=== PATIENT | female | born 1990 | race Caucasian/White ===

== ENCOUNTER 2016-05-26 08:39 | Emergency (ER) | payer BC ==
[2016-05-26] MEDS ORDERED: PROMETHAZINE HCL 25 MG/ML AMPUL IM ONE (10:10)
[2016-05-26] MEDS ORDERED: HYDROmorphone HCL 1 MG/ML DISP.SYRIN IM ONE (10:10)
[2016-05-26] MEDS ORDERED: METHYLPREDNISOLONE SOD SUCC/PF 125 MG/2 ML VIAL IM ONE (10:11)
[2016-05-26] MEDS ORDERED: HYDROmorphone HCL 1 MG/ML DISP.SYRIN ONE (10:30)
--- NOTE | 2016-05-26 10:30 | ERNOTE ---
Back Pain ER HPI Date of Service: 05/26/16 Presenting Symptoms: hx chronic back pain Time Seen by Provider: 05/26/16 10:02 Source: patient, RN notes reviewed, past records Exam Limitations: no limitations Immunizations: IMMUNIZATION HX Immunizations Up to Date Yes History of Influenza Vaccine No Hx Pneumococcal Vaccination No Allergies/Adverse Reactions: Allergies infliximab [From Remicade] Adverse Reaction (Severe, Verified 05/26/16 08:55) Anaphylaxis metoclopramide HCl [From Reglan] Adverse Reaction (Intermediate, Verified 08:55) Muscle Pain morphine Adverse Reaction (Intermediate, Verified 05/26/16 08:55) Hives Home Medications: HOME MEDICATIONS Hydrocodone/Acetaminophen [Vicodin 5-300 mg Tablet] 1 tab PO Q6H PRN #20 tablet 10/12/15 [Last Taken Unknown] Ondansetron [Zofran Odt] 4 mg PO Q6H PRN #20 tab 02/06/16 [Last Taken Unknown] Prednisone [Deltasone] 40 mg PO DAILY 05/26/16 [Last Taken Unknown] tiZANidine HCL [Zanaflex] 4 mg PO Q8H PRN #30 tab 05/26/16 [Last Taken Unknown] Narrative: 25 y/o female to ED for an exacerbation of chronic back pain d/t ankylosis spondylitis that began 2 days ago. She started a prednisone taper as directed by her pyrotechnist and is taking ibuprofen and Vicodin without improvement. She is also experiencing eye symptoms d/t uveitis and a flare up of psoriasis. Date (Duration): 05/24/16 Timing: Reports: constant Quality/Severity: Reports: severe, aching Location of pain: Reports: lower back, radiating to rt thigh/leg, radiating to lf thigh/leg Activities at Onset: Reports: none Recent Injury?: Reports: no Possible Precipitating Factor: Reports: none Associated Symptoms: Reports: difficulty walking. Denies: fever/chills, sweating, constipation/incontinence, nausea/vomiting, problems urinating, lightheadedness, numbess/weakness in legs Prior Treament: Reports: similar symptoms before. Denies: recently seen Review of Systems - Review of Systems Constitutional: Present: See HPI EYE: Present: eye pain, blurred vision. Absent: eye discharge, tearing ENT: Present: no symptoms reported Respiratory: Absent: shortness of breath, cough Cardiology: Present: no symptoms reported Gastrointestinal/Abdominal: Present: See HPI Genitourinary: Absent: other - possible Musculoskeletal: Present: back pain, muscle pain. Absent: neck pain, joint pain Skin: Present: rash, lesions. Absent: lumps Neurological: Absent: headache, dizziness/light-headedness, weakness, numbness Endocrine: Present: no symptoms reported Hematologic/Lymphatic: Present: no symptoms reported Psych: Present: no symptoms reported - Patient's Past Medical History Patient History - Medical: Chronic Pain, Fibromyalgia, Kidney stone, UTI'S, Other Patient History - Cardiac/Respiratory: No pertinent hx Patient History - Cancer: No Hx of Cancer Patient History - Surgical Procedures: Appendectomy, T & A, Other LMP (females 10-50): Mirena - Family History Mother Family History - Medical: Diabetes Type 2 Family History - Cardiac/Respiratory: No pertinent hx - Social History Living Situations: home Smoking Status: Never smoker Alcohol Use: rarely Drug Use: none Physical Exam - Physical Exam General Appearance: Present: wd/wn, alert, obese, other - appears uncomfortable Eye Exam: PERRL: bilateral, EOMI: bilateral, Other: bilateral - mild conjunctival injection bilat Neck: Present: normal inspection, nontender, supple Respiratory: Present: no respiratory distress, normal breath sounds, no accessory muscle use, lungs clear Cardiovascular/Chest: Present: regular rate, rhythm, no murmur, normal peripheral pulses Back Exam: Present: no CVA tenderness, vertebral tenderness - lumbar, decreased range of motion Extremity Exam: Present: normal inspection, non-tender, no edema, normal range of motion Neurological Exam: Present: alert, oriented, normal mood/affect, no motor/ sensory deficits Skin Exam: Present: normal color, warm/dry, skin rash - dry plaques present on elbows ED Progress - Vital Signs Patient's Vital Signs:: I have reviewed the patient's vital signs. Vital Signs: Vital Signs 05/26/16 08:54 Temperature 36.6 C Pulse Rate 95 Respiratory 16 Rate Blood Pressure 144/78 O2 Sat by Pulse 100 Oximetry - Progress/Reassessment Chief Complaint: Back Pain Progress:: Improved Plan - Plan Plan: Dilaudid, Phenergan and SoluMedrol given IM in dept. To contact rheumatology regarding her prednisone dose. Has Vicodin at home. Will Rx muscle relaxant. Departure Clinical Impression: Ankylosing spondylitis of lumbosacral region, Irritation of both eyes, Psoriasis - Departure Disposition: Home Follow Up Needed Condition: Good Instructions: Back Pain, Adult Additional Instructions: Continue ibuprofen and Vicodin Contact rheumatology regarding your prednisone dose Referrals: Melquiades Sims DO [Primary Care Provider] - Prescriptions: tiZANidine HCL [Zanaflex] 4 mg PO Q8H PRN #30 tab PRN Reason: Muscle Spasm
[2016-05-26] MEDS ORDERED: PROMETHAZINE HCL 25 MG/ML AMPUL ONE (10:31)
[2016-05-26] MEDS ORDERED: METHYLPREDNISOLONE SOD SUCC/PF 125 MG/2 ML VIAL ONE (10:31)
[2016-05-26 10:52] VITALS: BP 126/74
== END 2016-05-26 10:45 | disposition home or self-care (01) ==
LOC: ER 08:39
DX: M45.7 Ankylosing spondylitis of lumbosacral region (principal); H57.8 Other specified disorders of eye and adnexa; L40.9 Psoriasis, unspecified

== ENCOUNTER 2016-06-27 19:57 | Observation (INO) | payer BC ==
[2016-06-27] MEDS ORDERED: NORMAL SALINE 1,000 ML IV ONE (20:42)
[2016-06-27] MEDS ORDERED: PROMETHAZINE HCL 25 MG in DEXTROSE 5 % IN WATER 50 ML IV ONE ×2 (20:42)
[2016-06-27] MEDS ORDERED: diphenhydrAMINE HCL 50 MG/ML VIAL IV ONE (20:42)
[2016-06-27] MEDS ORDERED: NALBUPHINE HCL 20 MG/ML AMPUL IV ONE (20:42)
--- NOTE | 2016-06-27 20:52 | ERNOTE ---
<Brittaney Chavarria - Last Filed: 06/27/16 21:49> Headache ER HPI - Narrative Date of Service: 06/27/16 - General Presenting Symptoms: headache Time Seen by Provider: 06/27/16 20:28 Source: patient Exam Limitations: no limitations - Immun/Allergies/Home Medications Immunizations: IMMUNIZATION HX Immunizations Up to Date No History of Influenza Vaccine No Hx Pneumococcal Vaccination No Allergies/Adverse Reactions: Allergies infliximab [From Remicade] Adverse Reaction (Severe, Verified 06/27/16 20:33) Anaphylaxis metoclopramide HCl [From Reglan] Adverse Reaction (Intermediate, Verified 20:33) Muscle Pain morphine Adverse Reaction (Intermediate, Verified 06/27/16 20:33) Hives Home Medications: HOME MEDICATIONS Hydrocodone/Acetaminophen [Vicodin 5-300 mg Tablet] 1 tab PO Q6H PRN #20 tablet 10/12/15 [Last Taken 06/27/16 18:30] Ibuprofen [Motrin] 800 mg PO TID PRN 06/27/16 [Last Taken 06/27/16 17:00] Levonorgestrel [Mirena] 1 each IY DAILY 06/27/16 [Last Taken Unknown] Ustekinumab [Stelara] 45 mg SQ Q30D 06/27/16 [Last Taken 06/26/16] - History of Present Illness Narrative: Pt. comes in with c/o headache and muscle stiffness that started this afternoon.Pt. denies any recent illness or fever but does state that she has had recent dosage of stelara yesterday which was her first dosage of this medication. Pt. denies any CP, SOB, NVD, rhinorrhea, cough, or recent illness. Pt. states that she took vicodin without relief of symptoms. Pt. denies that this is the worst headache of her life but states that it is very severe. Review of Systems - Review of Systems Constitutional: Present: no symptoms reported. Absent: fever, chills, weakness , fatigue, malaise EYE: Present: no symptoms reported ENT: Present: no symptoms reported. Absent: nose pain, nose congestion, nasal drainage, sore throat Respiratory: Present: no symptoms reported. Absent: shortness of breath, cough , wheezing Cardiology: Present: no symptoms reported. Absent: chest pain, palpitations, edema Gastrointestinal/Abdominal: Present: no symptoms reported. Absent: nausea, vomiting, diarrhea Genitourinary: Present: no symptoms reported Musculoskeletal: Present: muscle pain - generalized, muscle stiffness - back and neck Skin: Present: no symptoms reported Neurological: Present: headache. Absent: dizziness/light-headedness, numbness, tingling All Other Systems: All systems neg except as marked - Patient's Past Medical History Patient History - Medical: Chronic Pain, Fibromyalgia, Kidney stone, UTI'S, Other - psoriasis Patient History - Cardiac/Respiratory: No pertinent hx Patient History - Cancer: No Hx of Cancer Patient History - Surgical Procedures: Appendectomy, Cholecystectomy, T & A Patient History - Other: None - Family History Mother Family History - Medical: Diabetes Type 2 Family History - Cardiac/Respiratory: No pertinent hx - Social History Living Situations: home Abuse History: No History of abuse Psych History: No pertinent hx Smoking Status: Never smoker Alcohol Use: rarely Drug Use: none - Immunizations Immunizations Up to Date: No Hx Pneumococcal Vaccination: No History of Influenza Vaccine: No Physical Exam - Physical Exam General Appearance: Present: wd/wn, alert, no apparent distress Eye Exam: Normal inspection: bilateral, PERRL: bilateral, EOMI: bilateral Ears, Nose, Throat: Present: normal ENT inspection, hearing grossly normal, normal pharynx Neck: Present: normal inspection, nontender. Absent: lymphadenopathy (R), lymphadenopathy (L) Respiratory: Present: no respiratory distress, normal breath sounds, no accessory muscle use, chest nontender, lungs clear Cardiovascular/Chest: Present: no murmur, normal peripheral pulses, tachycardia Gastrointestinal/Abdominal: Present: normal bowel sounds, nontender, nondistended, soft, no organomegaly Back Exam: Present: normal inspection, normal range of motion, no CVA tenderness , no vertebral tenderness Extremity Exam: Present: normal inspection, non-tender, no edema, normal range of motion Neurological Exam: Present: alert, oriented, normal mood/affect, no motor/ sensory deficits, commercial insurance underwriter II-XII nml as tested, normal cerebellar test Skin Exam: Present: normal color, warm/dry. Absent: pallor, skin rash ED Progress - Date and Time Seen: Date and Time: 06/27/16 20:49 As severe headache is common with stelara this could be a side effect but if intractable with analgesia then it could by RPLS. 06/27/16 21:49 Gave report on Pt. to Dr Milton. - Vital Signs Patient's Vital Signs:: I have reviewed the patient's vital signs. Vital Signs: Vital Signs 06/27/16 20:24 Temperature 36.6 C Pulse Rate 114 H Respiratory 18 Rate Blood Pressure 135/79 O2 Sat by Pulse 99 Oximetry - EKG EKG: other - sinus tach EKG read: Interp. 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 Headache Qualifiers: Headache type: other vascular headache Qualified Code(s): G44.1 - Vascular headache, not elsewhere classified - Departure Disposition: [facility] Condition: Good <Dedrick Gore - Last Filed: 06/27/16 22:48> Headache ER HPI - General Presenting Symptoms: headache Source: patient Exam Limitations: no limitations - Immun/Allergies/Home Medications Immunizations: IMMUNIZATION HX Immunizations Up to Date No History of Influenza Vaccine No Hx Pneumococcal Vaccination No Physical Exam - Physical Exam General Appearance: Present: wd/wn, alert, no apparent distress Eye Exam: Normal inspection: bilateral, PERRL: bilateral, EOMI: bilateral Ears, Nose, Throat: Present: normal ENT inspection, hearing grossly normal, normal pharynx Neck: Present: normal inspection, nontender Respiratory: Present: no respiratory distress Cardiovascular/Chest: Present: normal peripheral pulses Gastrointestinal/Abdominal: Present: normal bowel sounds, nontender, nondistended, soft, no organomegaly Back Exam: Present: normal inspection, normal range of motion, no CVA tenderness , no vertebral tenderness Extremity Exam: Present: normal inspection, non-tender, no edema, normal range of motion Neurological Exam: Present: alert, oriented, normal mood/affect, no motor/ sensory deficits, commercial insurance underwriter II-XII nml as tested, normal cerebellar test, other - Patient with no gross neurological deficits at this point.. Absent: facial droop, motor weakness, disoriented to person, disoriented to time, disoriented to place, disoriented to situation Skin Exam: Present: normal color, warm/dry. Absent: cool/dry, diaphoresis, cyanosis, jaundice Lymphatic Exam: Present: no adenopathy ED Progress - Date and Time Seen: Date and Time: 06/27/16 22:01 GCS: 15/15 NIH Stroke Scale: 0 Patient at the moment still with headache, but had mild improvement. Patient has no neurological deficits found at the moment. Patient has been given treatment for pain control. At the moment the Hx of been given stelara for the first time yesterday and the development of the worse headache of her life. At this point the diagnosis of Reversible Posterior Leukoencephalopathy Syndrome ( RPLS). Patient with Hx of Rheumatoid Condition which could increase WBC and CRP. Patient will be done CT of the Head at this point. Patient's Neurologist Dr. Dre Huertas (Rheumatology) was called at [phone], but at this time provider has no one covering for him and does not take call on behave of his patient's after hours. This information was given by Service to RN over the phone. At the same time it was informed that provider has no affiliation with hospital for emergency cases. We are to contact primary care provider for further consultation. 06/27/16 22:43 Patient still with BEY. Patient will be place in observation. Patient is considered to be suffering from a side effect to given medication. - Results and Orders Patient's Lab Results:: I have reviewed the patient's lab results. Results and Orders: CBC: Elevated WBC CRP: Elevated CMP: Elevated Na UA: Normal - Vital Signs Patient's Vital Signs:: I have reviewed the patient's vital signs. Vital Signs: Vital Signs 06/27/16 20:24 Temperature 36.6 C Pulse Rate 114 H Respiratory 18 Rate Blood Pressure 135/79 O2 Sat by Pulse 99 Oximetry - CT/Ultrasound CT/Ultrasound Narrative: Patient CT of the Head has been reported by Radiologist as: No acute intracranial hemorrhage o large vascular territory ischemic change - Progress/Reassessment Progress:: Improved - Transfer of Care Expected Disposition: Admit
--- OUTSIDE RECORDS SUMMARY | 2016-06-27 20:53 | XMS REPORT | Continuity of Care Document ---
:1990 Author Organization [facility] ([facility]) Address [address] [place] [address] Phone [phone] Care Team Providers Name Role Phone Melquiades Sims Primary Care Provider [phone] Source Comments This disclosure is being made pursuant to the Care Everywhere program, applicable federal and state laws, and may not contain all informaitonavailable regarding this patient.[facility] ([facility]) Active Allergies and Adverse Reactions Allergen Noted Date Severity Reactions Comments Infliximab 06/04/2011 Anaphylaxis Remicade Metoclopramide Hcl 02/06/2012 Dystonic reaction Morphine 10/27/2008 Rash Current Medications Prescription Sig. Disp. Refills Start Date End Date Status ondansetron 8 mg Take 8 mg by mouth Active disintegrating tablet every 8 hours as needed. Indications: EXCESSIVE VOMITING IN Active Problems Problem Noted Date screening for raised alphafetoprotein level 04/15/2013 Urolithiasis 02/06/2012 Ankylosing spondylitis 01/29/2009 Overview: * Diagnosed 2006 in [place] - atypical acute presentation, non-responsive to prednisone, improved on humira since dx Encounter for long-term (current) use of other medications 01/29/2009 Overview: * humira Recurrent UTI 01/29/2009 Nephrolithiasis 01/29/2009 Overview: * h/o Chronic diarrhea of unknown origin 01/29/2009 Ruptured ovarian cyst 01/29/2009 Overview: * h/o Encounter for long-term (current) use of non-steroidal anti-inflammatories Sleep disturbance 01/29/2009 Chronic pain 01/29/2009 Overview: * features of central sensitization, dx'd 10/10 Social History Tobacco Use Types Packs/Day Years Used Date Never Smoker Smokeless Tobacco: Never Used Alcohol Use Drinks/Week oz/Week Comments No Last Filed Vital Signs Vital Sign Reading Time Taken Blood Pressure 125/70 04/12/2013 1:58 PM ASSOCIATE DIRECTOR OF BIOSTATISTICS Pulse 105 02/22/2013 1:57 PM CDT Temperature 35.8 C (96.4 F) 04/12/2013 1:58 PM ASSOCIATE DIRECTOR OF BIOSTATISTICS Respiratory Rate 16 04/09/2012 9:50 AM ASSOCIATE DIRECTOR OF BIOSTATISTICS Height 1.6 m (5' 2.99") 04/12/2013 1:58 PM ASSOCIATE DIRECTOR OF BIOSTATISTICS Weight 76.6 kg (168 lb 14 oz) 04/12/2013 1:58 PM ASSOCIATE DIRECTOR OF BIOSTATISTICS Body Mass Index 29.92 04/12/2013 1:58 PM ASSOCIATE DIRECTOR OF BIOSTATISTICS Oxygen Saturation 98% 04/09/2012 9:50 AM ASSOCIATE DIRECTOR OF BIOSTATISTICS Plan of Care Health Maintenance Due Date Last Done Comments Hepatitis B Vaccine (1 of 3 - Primary Series) 1990 Tdap Vaccine 11/11/1999 Cervical Cancer Screening 2006 Lipid Disorder Screening 2006 MMR Vaccine 2006 Td Vaccine 2006 Varicella Vaccine (1 of 2 - Adult - No Evidence of 2006 Immunity) Influenza Vaccine: Seasonal (#1) 12/03/2015 Results from Last 3 Months Not on file
--- OUTSIDE RECORDS SUMMARY | 2016-06-27 20:53 | XMS REPORT | Continuity of Care Document ---
:1990 Author Organization [facility] [place] [address] Care Team Providers Name Role Phone Melquiades Sims A Primary Care Provider [phone] Source Comments This disclosure is being made pursuant to the [employer] program and maynot contain all information available regarding this patient.[facility] Active Allergies and Adverse Reactions Allergen Noted Date Severity Reactions Comments Morphine 08/01/2014 High Hives Reglan 08/01/2014 High Myalgia/Myopathy Remicade 08/01/2014 High Anaphylaxis Current Medications Be aware that medications may not be up to date as of this document. Alwaysverify current medications with the patient. Prescription Sig. Disp. Refills Start Date End Date Status ibuprofen Take 800 mg by Active (ADVIL,MOTRIN) 800 MG mouth every 6 tablet (six) hours as needed for Pain. acetaminophen (TYLENOL) Take 1,000 mg by Active 500 MG tablet mouth every 6 (six) hours as needed for Pain. predniSONE (DELTASONE) Days 1-3 take two 11 tablet 0 04/07/2016 Active 20 MG tablet tablets per day, days 4-6 take one tablet per day, days 7-9 take half tablet per day Ustekinumab 45 MG/0.5ML Inject 0.5 mLs 3 Syringe 3 04/11/2016 Active SOSY into the skin every 3 (three) months. Active Problems Problem Noted Date Psoriatic arthritis (HCC) 04/07/2016 Uveitis 04/07/2016 Joint pain 08/01/2014 Psoriasis 08/01/2014 Overview: Overview: Low back pain 05/26/2011 Overview: Overview: DONNA OBRIEN MD Constipation 05/12/2011 Overview: Overview: SONIA VILLALPANDO MD Irritable colon 05/12/2011 Overview: Overview: Acute pain 04/24/2011 Overview: Overview: KAMRON SEGURA DO Nausea with vomiting 04/24/2011 Overview: Overview: KAMRON SEGURA DO Mycoplasma infection 04/21/2011 Overview: Overview: KAMRON SEGURA DO Ovarian cyst 04/21/2011 Overview: Overview: KAMRON SEGURA DO History of urinary tract infection 03/31/2011 Overview: Overview: HARMONY BRUNO MD Overview: CHAPARRO NEWTON MD Dysuria 03/22/2011 Overview: Overview: KAMRON SEGURA DO Abdominal pain 02/05/2011 Overview: Overview: CHAPARRO NEWTON MD Gross hematuria 02/05/2011 Overview: Overview: CHAPARRO NEWTON MD Disorder of immune mechanism ([facility]) 07/09/2010 Overview: Overview: Other specified pre-operative examination 07/09/2010 Overview: Overview: CHAPARRO NEWTON MD Calculus of ureter 07/09/2010 Overview: Overview: CHAPARRO NEWTON MD Personal history of urinary calculi 07/04/2010 Overview: Overview: CHAPARRO NEWTON MD Overview: HARMONY BRUNO MD Myalgia and myositis 06/13/2010 Overview: Overview: DRE DIAZ MD Urinary tract infection 12/10/2009 Overview: Overview: DRE DIAZ MD Encounter for long-term (current) use of other medications 09/24/2009 Overview: Overview: DRE DIAZ MD Ankylosing spondylitis ([facility]) 04/19/2007 Overview: Overview: DRE DIAZ MD Most Recent Encounters Date Type Specialty Providers Description 04/17/2016 Data Import 04/11/2016 Refill Rheumatology Connie Boo LPN Psoriatic arthritis ([facility]) (Primary Dx); Uveitis 04/07/2016 Office Visit Rheumatology Dre Diaz MD Psoriatic arthritis ([facility]) (Primary Dx); Uveitis; Encounter for long-term (current) use of other medications 04/07/2016 Scanned Document Rheumatology Provider, Not In System Social History Tobacco Use Types Packs/Day Years Used Date Never Smoker Smokeless Tobacco: Never Used Tobacco Cessation:Counseling Given: No Comments: Alcohol Use Drinks/Week oz/Week Comments Yes occ Last Filed Vital Signs Vital Sign Reading Time Taken Blood Pressure 123/80 04/07/2016 3:12 PM MOTION PICTURE CAMERA LENS TECHNICIAN Pulse 94 04/07/2016 3:12 PM MOTION PICTURE CAMERA LENS TECHNICIAN Temperature 36.8 C (98.3 F) 06/03/2011 9:19 AM MOTION PICTURE CAMERA LENS TECHNICIAN Respiratory Rate 18 11/01/2014 9:47 AM CDT Height 1.6 m (5' 3") 05/28/2011 2:56 PM [employer]ION PICTURE CAMER[employer] LENS TECHNICIAN Weight 96.163 kg (212 lb) 04/07/2016 3:12 PM MOTION PICTURE CAMERA LENS TECHNICIAN Body Mass Index 37.56 04/07/2016 3:12 PM MOTION PICTURE CAMERA LENS TECHNICIAN Oxygen Saturation - - Plan of Care Date Type Specialty Providers Description 07/07/2016 Appointment Rheumatology Dre Diaz MD [facility] [address] [place] [address] [phone] (Fax) Health Maintenance Due Date Last Done Comments Tetanus/Pertussis (1 - Tdap) 11/11/2007 Pap Smear 2009 Influenza Immunization (#1) 2016 Results from Last 3 Months Not on file
[2016-06-27 21:15] LABS: Hemoglobin 13.8 gm/dL (12.5-16.0); Mean Cell Volume 87.9 fl (78-100); Mean Corpuscular Hemoglobin 28.9 pg (27-31); Mean Corpuscular Hgb Conc 32.9 g/dl (32-36); Mean Platelet Volume 9.4 fl (6.0-9.5); Neutrophil % 66.6 % (42-75.0); Platelet Count 314 K/mm3 (150-450); Red Blood Count 4.78 M/mm3 (4.2-5.4); Red Cell Distribution Width 12.8 % (11.5-14.0); White Blood Count 13.5 K/mm3 (4.0-10.5)
[2016-06-27 21:26] LABS: Albumin * 4.1 gm/dl (3.4-5.0); BUN/Creatinine Ratio 14.7 (9.0-21.6); Bilirubin, Total 0.2 mg/dL (0.0-1.1); CRP 2.3 mg/dL (0.0-0.9); Ca. Corrected For Albumin 8.6 mg/dL (8.4-10.2); Total Protein 8.5 gm/dL (6.2-8.2)
[2016-06-27] MEDS ORDERED: NALBUPHINE HCL 20 MG/ML AMPUL ONE (21:31)
[2016-06-27] MEDS ORDERED: diphenhydrAMINE HCL 50 MG/ML VIAL ONE (21:31)
[2016-06-27 21:41] LABS: Urine Appearance Clear; Urine Bilirubin Negative (NEGATIVE); Urine Blood 25 /ul (NEGATIVE); Urine Color Yellow; Urine Ketone Negative (NEGATIVE); Urine Nitrite Negative (NEGATIVE); Urine Protein Negative (NEGATIVE); Urine Specific Gravity 1.025 SP.GR. (1.005-1.010); Urine Urobilinogen Normal (NORMAL)
[2016-06-27 21:42] LABS: Urine Bacteria None Seen; Urine WBC 0-5 /hpf (0-5)
--- OUTSIDE RECORDS SUMMARY | 2016-06-27 22:53 | XMS REPORT | Continuity of Care Document ---
:1990 Author Organization [facility] [place] [address] Care Team Providers Name Role Phone Melquiades Sims A Primary Care Provider [phone] Source Comments This disclosure is being made pursuant to the [employer] program and maynot contain all information available regarding this patient.[facility] Active Allergies and Adverse Reactions Allergen Noted [...] CHAPARRO NEWTON MD Disorder of immune mechanism ([facility]) 07/09/2010 Overview: Overview: Other specified pre-operative examination [...] Overview: Overview: DRE DIAZ MD Ankylosing spondylitis ([facility]) 04/19/2007 Overview: Overview: DRE DIAZ MD Most Recent Encounters Date Type Specialty Providers Description 04/17/2016 Data Import 04/11/2016 Refill Rheumatology Connie Boo LPN Psoriatic arthritis ([facility]) (Primary Dx); Uveitis 04/07/2016 Office Visit Rheumatology Dre Diaz MD Psoriatic arthritis ([facility]) (Primary Dx); Uveitis; Encounter for long-term (current) use of other medications 04/07/2016 Scanned Document Rheumatology Provider, Not In System Social History Tobacco Use Types Packs/Day Years Used Date Never Smoker Smokeless Tobacco: Never Used Tobacco Cessation:Counseling Given: No Comments: Alcohol Use Drinks/Week oz/Week Comments Yes occ Last Filed Vital Signs Vital Sign Reading Time Taken Blood Pressure 123/80 04/07/2016 3:12 PM TUBE ROLLER Pulse 94 04/07/2016 3:12 PM TUBE ROLLER Temperature 36.8 C (98.3 F) 06/03/2011 9:19 AM TUBE ROLLER Respiratory Rate 18 11/01/2014 9:47 AM CDT Height 1.6 m (5' 3") 05/28/2011 2:56 PM TUBE ROLLER Weight 96.163 kg (212 lb) 04/07/2016 3:12 PM TUBE ROLLER Body Mass Index 37.56 04/07/2016 3:12 PM TUBE ROLLER Oxygen Saturation - - Plan of Care Date Type Specialty Providers Description 07/07/2016 Appointment Rheumatology Dre Diaz MD [facility] [address] [place] [address] [phone] (Fax) Health Maintenance Due Date Last Done Comments Tetanus/Pertussis (1 - Tdap) 11/11/2007 Pap Smear 2009 Influenza Immunization (#1) 2016 Results from Last 3 Months Not on file
--- OUTSIDE RECORDS SUMMARY | 2016-06-27 22:53 | XMS REPORT | Continuity of Care Document ---
:1990 Author Organization [facility] ([facility]) Address [address] [place] [address] Phone [phone] Care Team Providers Name Role Phone Melquiades Sims Primary Care Provider [phone] Source Comments This disclosure is being made pursuant to the Care Everywhere program, applicable federal and state laws, and may not contain all informaitonavailable regarding this patient.[facility] ([facility]) Active Allergies and Adverse Reactions Allergen [...] spondylitis 01/29/2009 Overview: * Diagnosed 2006 in [place] - atypical acute presentation, non-responsive to prednisone, [...] Taken Blood Pressure 125/70 04/12/2013 1:58 PM PURCHASING AND FISCAL CLERK Pulse 105 02/22/2013 1:57 PM CDT Temperature 35.8 C (96.4 F) 04/12/2013 1:58 PM PURCHASING AND FISCAL CLERK Respiratory Rate 16 04/09/2012 9:50 AM PURCHASING AND FISCAL CLERK Height 1.6 m (5' 2.99") 04/12/2013 1:58 PM PURCHASING AND FISCAL CLERK Weight 76.6 kg (168 lb 14 oz) 04/12/2013 1:58 PM PURCHASING AND FISCAL CLERK Body Mass Index 29.92 04/12/2013 1:58 PM PURCHASING AND FISCAL CLERK Oxygen Saturation 98% 04/09/2012 9:50 AM PURCHASING AND FISCAL CLERK Plan of Care Health Maintenance Due Date [...]
[2016-06-27] MEDS ORDERED: ONDANSETRON HCL/PF 2 MG/ML VIAL IV PRN (23:35)
[2016-06-27] MEDS ORDERED: HYDROCODONE PO PRN (23:36)
[2016-06-27] MEDS ORDERED: IBUPROFEN 800 MG TABLET PO PRN (23:36)
[2016-06-27] MEDS ORDERED: ACETAMINOPHEN PO PRN (23:36)
[2016-06-27] MEDS ORDERED: KETOROLAC TROMETHAMINE 30 MG/ML VIAL IV PRN (23:53)
[2016-06-27] MEDS: NORMAL SALINE 1,000 ML IV ONE (23:54)
--- NOTE | 2016-06-28 00:10 | HP ---
<Koki Donnelly - Last Filed: 06/28/16 07:15> Chief Complaint - Chief Complaint Date of Service: 06/28/16 Time of Service: 00:04 Chief Complaint: "Severe Headaches". Source of HPI- Pt; reliable, ER provider report. History of Present Illness: Ms. Caruso is a 25 -yr-old [place] pt of Dr. Melquiades Sims with a PMH: Anemia, Ankylosing Spondylitis, Kidney Calculus, Fibromyalgia, IBS, Psoriatic Athritis and Past Suicide attempts. Pt states that she has been seeing a Rheumatology doctor for Psoriasis. She was started on Stelara recently and she took the first SQ injection at 6 am today. Then at around noon, she states that she developed a headache. She took Ibuprofen for it and fours hour later, it was still persistent and severe. She states that she took 1 tablet of Hydrocodone-5 /325 and the headache never got better. She chose to come to the [facility] ER at about 630pm. She denies history of migraines and states that she rarely has headaches. Today's headache was the worst she has ever had. The location of the headache was the back side of the head and throbbing in nature. She denies the associated symptoms of: double vision, nausea & vomiting. She denies fevers & chills. Also, no photophobia was noted. During evaluation at the ED, she had a CT of the head and there were no acute findings. The headache failed to improve despite administration with IV analgesics. She will be admitted under observation status due to intractable headache. - Patient's Past Medical History Patient History - Medical: Anemia, Chronic Pain, Fibromyalgia, Kidney stone, UTI 'S, Other - Irritable Bowel Syndrome, Post Depression, Ankylosing Spondylitis, Patient History - Cardiac/Respiratory: No pertinent hx, Asthma Patient History - Cancer: No Hx of Cancer Patient History - Surgical Procedures: Appendectomy, Cholecystectomy, T & A Patient History - Other: None LMP (females 10-50): two years - Family History Mother Family History - Medical: Diabetes Type 2 Family History - Cardiac/Respiratory: No pertinent hx Father Family History - Cardiac/Respiratory: COPD - Social History Living Situations: spouse Abuse History: No History of abuse Psych History: No pertinent hx Smoking Status: Never smoker Have you smoked in the past 12 months: No Alcohol Use: rarely Drug Use: none - Immunizations Immunizations Up to Date: No Hx Pneumococcal Vaccination: No History of Influenza Vaccine: No Review Of Systems (GEN) - Review of Systems Generalized/Overall Review: Absent: Weakness, Chills, Fatigue EENTM: Present: Tearing. Absent: Eye Pain, Blurred Vision, Double Vision, Nose Congestion, Throat Pain Respiratory: Absent: Cough, Shortness of Breath, Wheezing Cardiac: Absent: Chest Pain Abdominal: Absent: Nausea, Vomiting, Hematemesis, Abdominal Pain Genitourinary: Absent: Burning, Itching, Frequency Musculoskeletal: Absent: Joint Pain, Back Pain Neurological: Absent: Headache, Anxiety Skin: Absent: Dryness, Lesions Endocrine: Absent: Intolerance to Cold, Excessive Sweating, Increased Hunger Allergies/Adverse Reactions: Allergies Allergy/AdvReac Type Severity Reaction Status Date / Time infliximab [From Remicade] AdvReac Severe Anaphylaxis Verified 06/27/16 23:37 metoclopramide HCl AdvReac Intermediate Muscle Pain Verified 06/27/16 23:37 [From Reglan] morphine AdvReac Intermediate Hives Verified 06/27/16 23:37 Home Medications: HOME MEDICATIONS Hydrocodone/Acetaminophen [Vicodin 5-300 mg Tablet] 1 tab PO Q6H PRN #20 tablet 10/12/15 [Last Taken 06/27/16 18:30] Ibuprofen [Motrin] 800 mg PO TID PRN 06/27/16 [Last Taken 06/27/16 17:00] Levonorgestrel [Mirena] 1 each IY DAILY 06/27/16 [Last Taken Unknown] Ustekinumab [Stelara] 45 mg SQ Q30D 06/27/16 [Last Taken 06/26/16] Exam - Exam Vital Signs: Vital Signs - Last Taken Temp 36.9 C 06/27/16 23:04 Pulse 110 H 06/27/16 23:04 Resp 18 06/27/16 23:04 BP 135/85 06/27/16 23:04 Pulse Ox 97 06/27/16 23:04 Constitutional: Present: Alert, Oriented x3, Cooperative, No distress ENT Exam: Absent: nasal congestion, nasal drainage Eye Exam: bilateral eye: other - Redness on both eyes. Neck: Present: full range of motion, supple, normal inspection Back Exam: Present: no CVA tenderness Respiratory: Present: lungs clear, no accessory muscle use, No wheezing Cardiovascular/Chest: Present: normal peripheral pulses, regular rate, rhythm, no edema, no murmur Abdomen: Present: Normal bowel sounds, soft, nontender /Rectal: Present: Exam deferred Extremity: Present: normal range of motion, non-tender, normal inspection Skin Exam: Present: warm/dry, no cyanosis Lymphatic: Present: no adenopathy Neurologic: Present: no motor/sensory deficits, alert, oriented x 3, dizzy/light -headedness Appearance: Present: appropriate appearance, appropriate insight, neat Eye contact: Present: cooperative, good eye contact, normal speech Thoughts: Present: normal thought pattern, no apparent hallucination Diagnostic Studies: Laboratory Results WBC 13.5 K/mm3 (4.0-10.5) H 06/27/16 21:05 RBC 4.78 M/mm3 (4.2-5.4) 06/27/16 21:05 Hgb 13.8 gm/dL (12.5-16.0) 06/27/16 21:05 Hct 42.0 % (37.0-47.0) 06/27/16 21:05 MCV 87.9 fl (78-100) 06/27/16 21:05 MCH 28.9 pg (27-31) 06/27/16 21:05 MCHC 32.9 g/dl (32-36) 06/27/16 21:05 RDW 12.8 % (11.5-14.0) 06/27/16 21:05 Plt Count 314 K/mm3 (150-450) 06/27/16 21:05 MPV 9.4 fl (6.0-9.5) 06/27/16 21:05 Immature Gran % (Auto) 0.20 % (0.001-0.429) 06/27/16 21:05 Immature Gran # (Auto) 0.03 K/mm3 (0.000-0.0310) 06/27/16 21:05 Neutrophils % 66.6 % (42-75.0) 06/27/16 21:05 Lymphocytes % 28.0 % (20-51) 06/27/16 21:05 Monocytes % 4.0 % (0.0-9) 06/27/16 21:05 Eosinophils % 0.8 % (0.0-3.0) 06/27/16 21:05 Basophils % 0.4 % (0.0-1.0) 06/27/16 21:05 Nucleated RBC % 0.0 k/mm3 (0-1) 06/27/16 21:05 Neutrophils # 9.0 K/mm3 (1.3-6.0) H 06/27/16 21:05 Lymphocytes # 3.8 k/mm3 (1.5-3.5) H 06/27/16 21:05 Monocytes # 0.5 k/mm3 (0.0-1.0) 06/27/16 21:05 Eosinophils # 0.1 k/mm3 (0.0-0.7) 06/27/16 21:05 Absolute Basophils 0.1 k/mm3 (0.0-0.1) 06/27/16 21:05 ESR 38 mm/hr (0-15) H 06/27/16 21:05 Sodium 139 mmol/L (132-142) 06/27/16 21:05 Plasma Sodium 140 mmol/L (130-142) 06/27/16 21:05 Potassium 4.0 mmol/L (3.4-4.6) 06/27/16 21:05 Chloride 103 mmol/L (97-106) 06/27/16 21:05 Carbon Dioxide 26.0 mmol/L (24-32.6) 06/27/16 21:05 Anion Gap 14.0 mmol/L (6.8-13.8) H 06/27/16 21:05 BUN 11 mg/dL (3-23) 06/27/16 21:05 Creatinine 0.75 mg/dL (0.4-1.4) 06/27/16 21:05 Est GFR (Non-Af Amer) 99 mL/min (60-130) D 06/27/16 21:05 BUN/Creatinine Ratio 14.7 (9.0-21.6) 06/27/16 21:05 Random Glucose 132 mg/dL (70-110) H 06/27/16 21:05 Calcium 9.0 mg/dL (7.9-10.9) 06/27/16 21:05 Calcium Adj for Albumin 8.6 mg/dL (8.4-10.2) 06/27/16 21:05 Total Bilirubin 0.2 mg/dL (0.0-1.1) 06/27/16 21:05 AST 19 U/L (0-48) 06/27/16 21:05 ALT 32 U/L (19-67) 06/27/16 21:05 Alkaline Phosphatase 57 U/L (50-170) 06/27/16 21:05 C-Reactive Prot, Quant 2.3 mg/dL (0.0-0.9) H 06/27/16 21: Total Protein 8.5 gm/dL (6.2-8.2) H 06/27/16 21: Albumin 4.1 gm/dl (3.4-5.0) 06/27/16 21: Urine Color Yellow 06/27/16 21: Urine Appearance Clear 06/27/16 21: Urine pH 6.0 pH (5.0-7.0) 06/27/16 21: Ur Specific [place] 1.025 SP.GR. (1.005-1.010) 06/27/16 21: Urine Protein Negative mg/dL (NEGATIVE) 06/27/16 21: Urine Glucose (UA) Negative mg/dL (NEGATIVE) 06/27/16 21: Urine Ketones Negative mg/dL (NEGATIVE) 06/27/16 21: Urine Blood 25 /ul (NEGATIVE) H 06/27/16 21: Urine Nitrate Negative (NEGATIVE) 06/27/16 21:27 Urine Bilirubin Negative mg/dl (NEGATIVE) 06/27/16 21: Urine Urobilinogen Normal EU/dl (NORMAL) 06/27/16 21: Ur Leukocyte Esterase Negative /ul (NEGATIVE) 06/27/16 21:27 Urine RBC 5-10 /hpf (0-5) H 06/27/16 21:27 Urine WBC 0-5 /hpf (0-5) 06/27/16 21:27 Ur Epithelial Cells 0-5 /hpf (0-5) 06/27/16 21: Urine Bacteria None seen (NONE) 06/27/16 21:27 Urine Culture Comments No culture indicated 06/27/16 21: Influenza Type A Ag Negative (NEGATIVE) 06/27/16 21:47 Influenza Type B Ag Negative (NEGATIVE) 06/27/16 21:47 Assessment/Plan - Assessment/Plan (1) Intractable headache due to drug Assessment: Ms. Caruso is a 25-yr-old female pt with a known history of Psoriasis and by her report, she was recently started on a new drug (Stelara) by her Vehicle Modification Technician. Attempts to reach this provider by the ERP was unsuccessful, hence no records to validate medical information. She tried Ibuprofen and hydrocodone at home and that regimen did not help and therefore chose to come to the ED. She denied the associated symptoms of nausea, vomiting, double vision ,dizziness, vertigo. She also denied prior history of primary headaches. At the time of examination, she does appear to be in mild distress but does not appear acutely ill. V.S remained stable. Her mental status is normal and does not appear intoxicated. I do not believe that MRI is necessary as there was no Altered level of consciousness of Neurological deficits, unless the CT shows inconclusive findings. The headache is likely the side effect of the Stelara and is a SQ injection that is administered every 4 weeks then q 12 weeks. It has a reported half-life elimination of 10-126 days & so am uncertain how long her headaches could last if indeed her headaches are from this medication. For any acute treatment of a headache episode, simple analgesics and NSAIDs are strongly recommended as first line use. Ibuprofen 200-800mg has a favorable side effect. Could also consider Diclofenac. Will attempt to treat with scheduled APAP and avoid narcotics as they can worsen headaches. Will also hydrate with IVF as dehydration can worsen headaches also. Will offer prn Toradol IV. Problem: Suspected <Philipp Hale - Last Filed: 06/28/16 14:49> Immunizations: IMMUNIZATION HX Immunizations Up to Date No History of Influenza Vaccine No Hx Pneumococcal Vaccination No Exam - Exam Vital Signs: Vital Signs - Last Taken Temp 36.9 C 06/28/16 10:45 Pulse 98 06/28/16 10:45 Resp 18 06/28/16 10:45 BP 123/57 06/28/16 10:45 Pulse Ox 98 06/28/16 10:45 Diagnostic Studies: Laboratory Results WBC 13.5 K/mm3 (4.0-10.5) H 06/27/16 21:05 RBC 4.78 M/mm3 (4.2-5.4) 06/27/16 21:05 Hgb 13.8 gm/dL (12.5-16.0) 06/27/16 21:05 Hct 42.0 % (37.0-47.0) 06/27/16 21:05 MCV 87.9 fl (78-100) 06/27/16 21:05 MCH 28.9 pg (27-31) 06/27/16 21:05 MCHC 32.9 g/dl (32-36) 06/27/16 21:05 RDW 12.8 % (11.5-14.0) 06/27/16 21:05 Plt Count 314 K/mm3 (150-450) 06/27/16 21:05 MPV 9.4 fl (6.0-9.5) 06/27/16 21:05 Immature Gran % (Auto) 0.20 % (0.001-0.429) 06/27/16: Immature Gran # (Auto) 0.03 K/mm3 (0.000-0.0310) 06/27/16 21:05 Neutrophils % 66.6 % (42-75.0) 06/27/16 21:05 Lymphocytes % 28.0 % (20-51) 06/27/16 21:05 Monocytes % 4.0 % (0.0-9) 06/27/16 21:05 Eosinophils % 0.8 % (0.0-3.0) 06/27/16 21:05 Basophils % 0.4 % (0.0-1.0) 06/27/16 21: Nucleated RBC % 0.0 k/mm3 (0-1) 06/27/16 21:05 Neutrophils # 9.0 K/mm3 (1.3-6.0) H 06/27/16 21:05 Lymphocytes # 3.8 k/mm3 (1.5-3.5) H 06/27/16 21:05 Monocytes # 0.5 k/mm3 (0.0-1.0) 06/27/16 21:05 Eosinophils # 0.1 k/mm3 (0.0-0.7) 06/27/16 21:05 Absolute Basophils 0.1 k/mm3 (0.0-0.1) 06/27/16 21:05 ESR 38 mm/hr (0-15) H 06/27/16 21:05 Sodium 139 mmol/L (132-142) 06/27/16 21:05 Plasma Sodium 140 mmol/L (130-142) 06/27/16 21:05 Potassium 4.0 mmol/L (3.4-4.6) 06/27/16 21:05 Chloride 103 mmol/L (97-106) 06/27/16 21:05 Carbon Dioxide 26.0 mmol/L (24-32.6) 06/27/16 21:05 Anion Gap 14.0 mmol/L (6.8-13.8) H 06/27/16 21:05 BUN 11 mg/dL (3-23) 06/27/16 21:05 Creatinine 0.75 mg/dL (0.4-1.4) 06/27/16 21:05 Est GFR (Non-Af Amer) 99 mL/min (60-130) D 06/27/16 21:05 BUN/Creatinine Ratio 14.7 (9.0-21.6) 06/27/16 21:05 Random Glucose 132 mg/dL (70-110) H 06/27/16 21:05 Calcium 9.0 mg/dL (7.9-10.9) 06/27/16 21:05 Calcium Adj for Albumin 8.6 mg/dL (8.4-10.2) 06/27/16 21:05 Total Bilirubin 0.2 mg/dL (0.0-1.1) 06/27/16 21:05 AST 19 U/L (0-48) 06/27/16 21:05 ALT 32 U/L (19-67) 06/27/16 21:05 Alkaline Phosphatase 57 U/L (50-170) 06/27/16 21:05 C-Reactive Prot, Quant 2.3 mg/dL (0.0-0.9) H 06/27/16 21:05 Total Protein 8.5 gm/dL (6.2-8.2) H 06/27/16 21:05 Albumin 4.1 gm/dl (3.4-5.0) 06/27/16 21:05 Urine Color Yellow 06/27/16 21:27 Urine Appearance Clear 06/27/16:27 Urine pH 6.0 pH (5.0-7.0) 06/27/16 21:27 Ur Specific [place] 1.025 SP.GR. (1.005-1.010) 06/27/16 21:27 Urine Protein Negative mg/dL (NEGATIVE) 06/27/16 21:27 Urine Glucose (UA) Negative mg/dL (NEGATIVE) 06/27/16 21:27 Urine Ketones Negative mg/dL (NEGATIVE) 06/27/16 21:27 Urine Blood 25 /ul (NEGATIVE) H 06/27/16 21:27 Urine Nitrate Negative (NEGATIVE) 06/27/16 21:27 Urine Bilirubin Negative mg/dl (NEGATIVE) 06/27/16 21: Urine Urobilinogen Normal EU/dl (NORMAL) 06/27/16 21:27 Ur Leukocyte Esterase Negative /ul (NEGATIVE) 06/27/16 21:27 Urine RBC 5-10 /hpf (0-5) H 06/27/16 21:27 Urine WBC 0-5 /hpf (0-5) 06/27/16 21:27 Ur Epithelial Cells 0-5 /hpf (0-5) 06/27/16 21:27 Urine Bacteria None seen (NONE) 06/27/16 21:27 Urine Culture Comments No culture indicated 06/27/16 21:27 Influenza Type A Ag Negative (NEGATIVE) 06/27/16 21:47 Influenza Type B Ag Negative (NEGATIVE) 06/27/16 21:47 Assessment/Plan - Narrative Narrative: This patient has a history of occasional minor headaches dating back to when she was 11 y/o. Her father also has headaches. She also has a history of chronic pain. I personally directed all of [facility]'s care for this patient.
[2016-06-28] MEDS: ACETAMINOPHEN 500 MG TABLET PO PRN ×2 (01:01→12:55)
[2016-06-28] MEDS ORDERED: NALBUPHINE HCL 20 MG/ML AMPUL IV ONE (03:32)
[2016-06-28] MEDS: NORMAL SALINE 1,000 ML IV ONE (06:33)
[2016-06-28] MEDS ORDERED: MAGNESIUM SULFATE 4 MEQ/ML VIAL IV ONE (08:38)
[2016-06-28] MEDS: KETOROLAC TROMETHAMINE 30 MG/ML VIAL IV SCH ×2 (09:35→14:26)
[2016-06-28] MEDS: diphenhydrAMINE HCL 50 MG/ML VIAL IV SCH ×2 (09:35→14:30)
[2016-06-28] MEDS: PROMETHAZINE HCL 25 MG in DEXTROSE 5 % IN WATER 50 ML IV SCH ×4 (09:36→14:32)
[2016-06-28] MEDS ORDERED: MAGNESIUM SULFATE IV SCH (10:00)
[2016-06-28] MEDS ORDERED: NORMAL SALINE IV SCH (10:00)
[2016-06-28] MEDS ORDERED: diphenhydrAMINE HCL 50 MG/ML VIAL IV STA (14:12)
[2016-06-28] MEDS ORDERED: PROMETHAZINE HCL 25 MG in DEXTROSE 5 % IN WATER 50 ML IV STA ×2 (14:12)
--- NOTE | 2016-06-28 14:57 | DS ---
Description of Stay: CT of the brain at time of admission was non acute. Headache is somewhat better at the present time. She has had intermittent headaches in the past, and her father has headaches, but this one seems to have been triggered by Stelara. We have advised no future use of this medicine, and recommended a trial of daily Depakote ER to decrease headaches. Procedures Performed: none Discharge Disposition: Home self care Disposition: Home self-care Condition: Good Discharge Activity: Activity as tolerated Discharge Diet: General/regular food Problem Oriented Discharge Instructions to Patient/Family: Drug Allergy, Easy- to-Read Additional Patient Instructions (free text): Avoid Stelara in the future. Follow up with your doctor next week. Prescriptions (Any new or edited meds): Divalproex Sodium [Depakote ER] 500 mg PO HS #7 tab Complete Home Medications List: Complete Home Medication List: Hydrocodone/Acetaminophen [Vicodin 5-300 mg Tablet] 1 tab PO Q6H PRN #20 tablet 10/12/15 Ibuprofen [Motrin] 800 mg PO TID PRN 06/27/16 Levonorgestrel [Mirena] 1 each IY DAILY 06/27/16 Divalproex Sodium [Depakote ER] 500 mg PO HS #7 tab 06/28/16
[2016-06-28 15:50] VITALS: BP 108/62
[2016-06-28] MEDS ORDERED: HYDROcodone/ACETAMINOPHEN 1 EACH TABLET PO ONE (16:30)
[2016-07-28] MEDS ORDERED: LEVONORGESTREL IY ONE (09:00)
== END 2016-06-28 16:55 | disposition home or self-care (01) ==
LOC: ER 19:57 → MS 22:44
PROVIDERS: ADMIT Allergy & Immunology; ATTEND Allergy & Immunology
DX: G44.41 Drug-induced headache, not elsewhere classified, intractable (principal); L40.9 Psoriasis, unspecified; M79.7 Fibromyalgia; T50.995A Adverse effect of other drugs, medicaments and biological substances, initial encounter
CPT/HCPCS: 36415; 70450; 80053; 81001; 85025; 85652; 86140; 87400; 93005; 96365; 96366; 96367; 96375; 96376; 99284; G0378

== ENCOUNTER 2016-07-10 19:56 | Emergency (ER) | payer BC ==
[2016-07-10 20:06] VITALS: BP 154/83
--- OUTSIDE RECORDS SUMMARY | 2016-07-10 20:39 | XMS REPORT | Continuity of Care Document ---
:1990 Author Organization [facility] [place] [address] Care Team Providers Name Role Phone Melquiades Sims A Primary Care Provider [phone] Source Comments This disclosure is being made pursuant to the [employer] program and maynot contain all information available regarding this patient.[facility] Active Allergies and Adverse Reactions Allergen Noted [...] CHAPARRO NEWTON MD Disorder of immune mechanism (HCC) 07/09/2010 Overview: Overview: Other specified pre-operative examination 07/09/2010 Overview: Overview: CHAPARRO NEWTON MD Calculus of ureter 07/09/2010 Overview: Overview: CHAPARRO NEWTON MD Personal history of urinary calculi 07/04/2010 Overview: Overview: CHAPARRO NEWTON MD Overview: HARMONY BRUNO MD Myalgia and myositis 06/13/2010 Overview: Overview: NIMO DIAZ MD Urinary tract infection 12/10/2009 Overview: Overview: NIMO DIAZ MD Encounter for long-term (current) use of other medications 09/24/2009 Overview: Overview: NIMO DIAZ MD Ankylosing spondylitis ([facility]) 04/19/2007 Overview: Overview: NIMO DIAZ MD Most Recent Encounters Date Type Specialty Providers Description 04/17/2016 Data Import 04/11/2016 Refill Rheumatology Connie Boo LPN Psoriatic arthritis ( [facility]) (Primary Dx); Uveitis Social History Tobacco Use Types Packs/Day Years Used Date Never Smoker Smokeless Tobacco: Never Used Tobacco Cessation:Counseling Given: No Comments: Alcohol Use Drinks/Week oz/Week Comments Yes occ Last Filed Vital Signs Vital Sign Reading Time Taken Blood Pressure 123/80 04/07/2016 3:12 PM FIELD COLLECTOR Pulse 94 04/07/2016 3:12 PM FIELD COLLECTOR Temperature 36.8 C (98.3 F) 06/03/2011 9:19 AM FIELD COLLECTOR Respiratory Rate 18 11/01/2014 9:47 AM CDT Height 1.6 m (5' 3") 05/28/2011 2:56 PM FIELD COLLECTOR Weight 96.163 kg (212 lb) 04/07/2016 3:12 PM FIELD COLLECTOR Body Mass Index 37.56 04/07/2016 3:12 PM FIELD COLLECTOR Oxygen Saturation - - Plan of Care Health Maintenance Due Date Last Done Comments Tetanus/Pertussis (1 - Tdap) 11/11/2007 Pap Smear 2009 Influenza Immunization (#1) 2016 Results from Last 3 Months Not on file
--- OUTSIDE RECORDS SUMMARY | 2016-07-10 20:40 | XMS REPORT | Continuity of Care Document ---
:1990 Author Organization [facility] ([facility]) Address [address] [place] [address] Phone [phone] Care Team Providers Name Role Phone Melquiades Sims Primary Care Provider [phone] Source Comments This disclosure is being made pursuant to the Care Everywhere program, applicable federal and state laws, and may not contain all informaitonavailable regarding this patient.[facility] ([facility]) Active Allergies and Adverse Reactions Allergen [...] spondylitis 01/29/2009 Overview: * Diagnosed 2006 in [place] - atypical acute presentation, non-responsive to prednisone, [...] Taken Blood Pressure 125/70 04/12/2013 1:58 PM CARPENTER PROTOTYPE Pulse 105 02/22/2013 1:57 PM CDT Temperature 35.8 C (96.4 F) 04/12/2013 1:58 PM [employer]ENTER [employer] Respiratory Rate 16 04/09/2012 9:50 AM [employer]PENTER [employer] Height 1.6 m (5' 2.99") 04/12/2013 1:58 PM [employer] Weight 76.6 kg (168 lb 14 oz) 04/12/2013 1:58 PM [employer] Body Mass Index 29.92 04/12/2013 1:58 PM [employer] Oxygen Saturation 98% 04/09/2012 9:50 AM [employer] Plan of Care Health Maintenance Due Date [...]
[2016-07-10] MEDS ORDERED: TETRACAINE HCL 150 DROP BTL ONE (20:42)
--- NOTE | 2016-07-10 20:48 | ERNOTE ---
ENT HPI Date of Service: 07/10/16 Time Seen by Provider: 07/10/16 20:06 - Immun/Allergies/Home Medications Immunizations: IMMUNIZATION HX Immunizations Up to Date Yes History of Influenza Vaccine No Hx Pneumococcal Vaccination No Allergies/Adverse Reactions: Allergies Allergy/AdvReac Type Severity Reaction Status Date / Time infliximab [From Remicade] AdvReac Severe Anaphylaxis Verified 06/27/16 23:37 metoclopramide HCl AdvReac Intermediate Muscle Pain Verified 06/27/16 23:37 [From Reglan] morphine AdvReac Intermediate Hives Verified 06/27/16 23:37 ustekinumab [From Stelara] AdvReac Intermediate Headache Verified 06/28/16 14:52 Home Medications: HOME MEDICATIONS Hydrocodone/Acetaminophen [Vicodin 5-300 mg Tablet] 1 tab PO Q6H PRN #20 tablet 10/12/15 [Last Taken 06/27/16 18:30] Ibuprofen [Motrin] 800 mg PO TID PRN 06/27/16 [Last Taken 06/27/16 17:00] Levonorgestrel [Mirena] 1 each IY DAILY 06/27/16 [Last Taken Unknown] Divalproex Sodium [Depakote ER] 500 mg PO HS #7 tab 06/28/16 [Last Taken Unknown ] - History of Present Illness Narrative: pt felt as if she had a "hair" in her left eye. she removed it and rubbed her left eye, now it is inflamed and feels itchy Severity: Present: mild ENT Location: Present: eye (L) Review of Systems - Review of Systems Constitutional: Present: See HPI EYE: Present: see HPI Respiratory: Present: no symptoms reported Cardiology: Present: no symptoms reported Gastrointestinal/Abdominal: Present: no symptoms reported - Patient's Past Medical History Patient History - Medical: Anemia, Chronic Pain, Fibromyalgia, Kidney stone, UTI 'S, Other Patient History - Cardiac/Respiratory: No pertinent hx, Asthma Patient History - Cancer: No Hx of Cancer Patient History - Surgical Procedures: Appendectomy, Cholecystectomy, T & A Patient History - Other: None - Family History Mother Family History - Medical: Diabetes Type 2 Family History - Cardiac/Respiratory: No pertinent hx Father Family History - Cardiac/Respiratory: COPD - Social History Living Situations: spouse Abuse History: No History of abuse Psych History: No pertinent hx Smoking Status: Never smoker Have you smoked in the past 12 months: No Do you dip or chew tobacco: No Alcohol Use: rarely Drug Use: none - Immunizations Immunizations Up to Date: Yes Hx Pneumococcal Vaccination: No History of Influenza Vaccine: No Physical Exam - Physical Exam General Appearance: Present: wd/wn, alert, no apparent distress Eye Exam: Normal inspection: left - left phymosis noted, pt has edema of left conjunctiva. PERRLA, EOMI, no visible uveitis. fundus looks normal. , PERRL: bilateral, EOMI: bilateral Ears, Nose, Throat: Present: normal ENT inspection Respiratory: Present: no respiratory distress Cardiovascular/Chest: Present: regular rate, rhythm ED Progress - Vital Signs Patient's Vital Signs:: I have reviewed the patient's vital signs. Vital Signs: Vital Signs 07/10/16 19:57 Temperature 37.1 C Pulse Rate 88 Respiratory 18 Rate Blood Pressure 154/83 O2 Sat by Pulse 100 Oximetry - Progress/Reassessment Chief Complaint: Eye Injury/Trauma Plan - Plan Plan: pt appears to have an irritant type of conjunctivitis and will be patched and two drops of tetracaine will be administered. She is advised to follow up with her quality compliance manager tomorrow for a second opinion Departure Clinical Impression: Conjunctivitis Qualifiers: Conjunctivitis type: acute Acute conjunctivitis type: unspecified Laterality: left Qualified Code(s): H10.32 - Unspecified acute conjunctivitis, left eye - Departure Disposition: Home self-care Condition: Fair Instructions: Allergic Conjunctivitis, [id number] Additional Instructions: PLEASE GO SEE YOU GRADUATE ASSISTANT FOR A SECOND OPINION IF YOU ARE NOT SIGNIFICANTLY BETTER BY TOMORROW Referrals: Melquiades Sims DO [Primary Care Provider] -
[2016-07-10] MEDS ORDERED: TETRACAINE HCL 150 DROP BTL LEFTEYE ONE (20:49)
== END 2016-07-10 20:58 | disposition home or self-care (01) ==
LOC: ER 19:56
DX: H10.32 Unspecified acute conjunctivitis, left eye (principal); Z87.440 Personal history of urinary (tract) infections; Z87.442 Personal history of urinary calculi

== ENCOUNTER 2016-07-30 18:06 | Emergency (ER) | payer BC ==
[2016-07-30 18:44] LABS: Hematocrit 39.4 % (37.0-47.0); Hemoglobin 13.1 gm/dL (12.5-16.0); Mean Cell Volume 86.8 fl (78-100); Mean Corpuscular Hemoglobin 28.9 pg (27-31); Mean Corpuscular Hgb Conc 33.2 g/dl (32-36); Mean Platelet Volume 9.2 fl (6.0-9.5); Neutrophil # 9.6 K/mm3 (1.3-6.0); Neutrophil % 75.4 % (42-75.0); Platelet Count 266 K/mm3 (150-450); Red Blood Count 4.54 M/mm3 (4.2-5.4); Red Cell Distribution Width 12.8 % (11.5-14.0); White Blood Count 12.7 K/mm3 (4.0-10.5)
[2016-07-30 18:46] LABS: Urine Bilirubin Negative (NEGATIVE); Urine Blood 25 /ul (NEGATIVE); Urine Ketone Negative (NEGATIVE); Urine Nitrite Negative (NEGATIVE); Urine Protein Negative (NEGATIVE); Urine Urobilinogen Normal (NORMAL)
[2016-07-30 19:00] LABS: Urine Appearance Slightly Cloudy; Urine Bacteria 1+; Urine Color Yellow; Urine RBC TRACE /hpf (0-5); Urine WBC 0-5 /hpf (0-5)
[2016-07-30 19:01] LABS: BUN/Creatinine Ratio 16.2 (9.0-21.6); Potassium 3.8 mmol/L (3.4-4.6)
[2016-07-30 19:02] LABS: Albumin * 4.3 gm/dl (3.4-5.0); Bilirubin, Total 0.3 mg/dL (0.0-1.1); Ca. Corrected For Albumin 8.4 mg/dL (8.4-10.2); Total Protein 8.6 gm/dL (6.2-8.2)
[2016-07-30 19:06] LABS: Carbon Dioxide 25.8 mmol/L (24-32.6)
--- NOTE | 2016-07-30 19:21 | ERNOTE ---
Abdominal HPI - General Chief Complaint: Abdominal Pain Time Seen by Provider: 07/30/16 19:15 Source: patient Exam Limitations: no limitations - Immun/Allergies/Home Medications Immunizatons: IMMUNIZATION HX Immunizations Up to Date Yes History of Influenza Vaccine No Hx Pneumococcal Vaccination No Allergies/Adverse Reactions: Allergies infliximab [From Remicade] Adverse Reaction (Severe, Verified 07/30/16 18:23) Anaphylaxis metoclopramide HCl [From Reglan] Adverse Reaction (Intermediate, Verified 18:23) Muscle Pain morphine Adverse Reaction (Intermediate, Verified 07/30/16 18:23) Hives ustekinumab [From Stelara] Adverse Reaction (Intermediate, Verified 07/30/16 18: 23) Headache Home Medications: HOME MEDICATIONS HYDROcodone/ACETAMINOPHEN [Vicodin 5-300 mg Tablet] 1 tab PO Q6H PRN #20 tablet 10/12/15 [Last Taken 06/27/16 18:30] Ibuprofen [Motrin] 800 mg PO TID PRN 06/27/16 [Last Taken 06/27/16 17:00] Levonorgestrel [Mirena] 1 each IY DAILY 06/27/16 [Last Taken Unknown] HYDROcodone/ACETAMINOPHEN [[place] 5-325] 1 each PO Q4H #20 tablet 07/30/16 [Last Taken Unknown] Nitrofurantoin/Nitrofuran Mac [Macrobid] 100 mg PO Q12H #14 capsule 07/30/16 [ Last Taken Unknown] Tamsulosin HCl [Flomax] 0.4 mg PO DAILY@1800 #7 capsule 07/30/16 [Last Taken Unknown] - History of Present Illness Timing: constant Quality: severe Activities at Onset: none Prior Abdominal Problems: Present: similar symptoms - with kidney stones Review of Systems - Review of Systems Constitutional: Present: See HPI EYE: Present: no symptoms reported ENT: Present: no symptoms reported Respiratory: Present: no symptoms reported Cardiology: Present: no symptoms reported Gastrointestinal/Abdominal: Present: no symptoms reported Genitourinary: Present: hematuria, other - right flank pain Musculoskeletal: Present: no symptoms reported Skin: Present: no symptoms reported Neurological: Present: no symptoms reported Endocrine: Present: no symptoms reported Hematologic/Lymphatic: Present: no symptoms reported Psych: Present: no symptoms reported - Patient's Past Medical History Patient History - Medical: Anemia, Chronic Pain, Fibromyalgia, Kidney stone, UTI 'S, Other Patient History - Cardiac/Respiratory: No pertinent hx, Asthma Patient History - Cancer: No Hx of Cancer Patient History - Surgical Procedures: Appendectomy, Cholecystectomy, T & A Patient History - Other: None - Family History Mother Family History - Medical: Diabetes Type 2 Family History - Cardiac/Respiratory: No pertinent hx Father Family History - Cardiac/Respiratory: COPD - Social History Living Situations: home Abuse History: No History of abuse Psych History: No pertinent hx Smoking Status: Never smoker Alcohol Use: rarely Drug Use: none - Immunizations Immunizations Up to Date: Yes Hx Pneumococcal Vaccination: No History of Influenza Vaccine: No Physical Exam - Physical Exam General Appearance: Present: wd/wn, alert, moderate distress Eye Exam: Normal inspection: bilateral, PERRL: bilateral Ears, Nose, Throat: Present: normal ENT inspection, H, normal pharynx Neck: Present: normal inspection, nontender Respiratory: Present: no respiratory distress, normal breath sounds, no accessory muscle use, chest nontender, lungs clear Cardiovascular/Chest: Present: regular rate, rhythm, no murmur, normal peripheral pulses Gastrointestinal/Abdominal: Present: normal bowel sounds, nontender, nondistended, soft, no organomegaly Rectal Exam: Present: deferred Back Exam: Present: normal range of motion, CVA tenderness (R) Extremity Exam: Present: normal inspection, non-tender, no edema, normal range of motion Neurological Exam: Present: alert, oriented, normal mood/affect Skin Exam: Present: normal color, warm/dry Lymphatic Exam: Present: no adenopathy ED Progress - Results and Orders Patient's Lab Results:: I have reviewed the patient's lab results. - Vital Signs Patient's Vital Signs:: I have reviewed the patient's vital signs. Vital Signs: Vital Signs 07/30/16 18:20 Temperature 37.1 C Pulse Rate 112 H Respiratory 16 Rate Blood Pressure 125/77 O2 Sat by Pulse 99 Oximetry - CT/Ultrasound CT/Ultrasound Narrative: CT results were reviewed. - Progress/Reassessment Chief Complaint: Abdominal Pain Departure - Departure Clinical Impression: Kidney stones, Renal colic on right side UTI (urinary tract infection) Qualifiers: Urinary tract infection type: acute cystitis Hematuria presence: with hematuria Qualified Code(s): N30.01 - Acute cystitis with hematuria Disposition: Home self-care Condition: Good Instructions: Urinary Tract Infection, Adult, [id number], Renal Colic, Easy- to-Read, Kidney Stones, [id number] Referrals: Melquiades Sims DO [Primary Care Provider] - Prescriptions: HYDROcodone/ACETAMINOPHEN [[place] 5-325] 1 each PO Q4H #20 tablet Nitrofurantoin/Nitrofuran Mac [Macrobid] 100 mg PO Q12H #14 capsule Tamsulosin HCl [Flomax] 0.4 mg PO DAILY@1800 #7 capsule
--- OUTSIDE RECORDS SUMMARY | 2016-07-30 19:23 | XMS REPORT | Continuity of Care Document ---
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/2010 Overview: Overview: Other specified pre-operative examination [...] Overview: NIMO DIAZ MD Ankylosing spondylitis ([facility]) 04/19/2007 Overview: Overview: NIMO DIAZ MD Most Recent Encounters Date Type Specialty Providers Description 07/28/2016 Data Import Social History Tobacco Use Types Packs/Day Years Used Date Never Smoker Smokeless Tobacco: Never Used Tobacco Cessation:Counseling Given: No Comments: Alcohol Use Drinks/Week oz/Week Comments Yes occ Last Filed Vital Signs Vital Sign Reading Time Taken Blood Pressure 123/80 04/07/2016 3:12 PM SHIP SURVEYOR Pulse 94 04/07/2016 3:12 PM SHIP SURVEYOR Temperature 36.8 C (98.3 F) 06/03/2011 9:19 AM SHIP SURVEYOR Respiratory Rate 18 11/01/2014 9:47 AM CDT Height 1.6 m (5' 3") 05/28/2011 2:56 PM SHIP SURVEYOR Weight 96.163 kg (212 lb) 04/07/2016 3:12 PM SHIP SURVEYOR Body Mass Index 37.56 04/07/2016 3:12 PM SHIP SURVEYOR Oxygen Saturation - - Plan of Care Health Maintenance Due Date Last Done Comments Tetanus/Pertussis (1 - Tdap) 11/11/2007 Pap Smear 2009 Influenza Immunization (#1) 2016 Results from Last 3 Months Not on file
--- OUTSIDE RECORDS SUMMARY | 2016-07-30 19:23 | XMS REPORT | Continuity of Care Document ---
:1990 Author Organization [facility] ([facility]) Address [address] [place] [address] Phone [phone] Care Team Providers Name Role Phone Melquiades Sims Primary Care Provider [phone] Source Comments This disclosure is being made pursuant to the Care Everywhere program, applicable federal and state laws, and may not contain all informaitonavailable regarding this patient.[facility] ([facility]) Active Allergies and Adverse Reactions Allergen Noted [...] spondylitis 01/29/2009 Overview: * Diagnosed 2006 in [place] - atypical acute presentation, non-responsive to prednisone, [...] Taken Blood Pressure 125/70 04/12/2013 1:58 PM RN LACTATION CONSULTANT Pulse 105 02/22/2013 1:57 PM CDT Temperature 35.8 C (96.4 F) 04/12/2013 1:58 PM RN LACTATION CONSULTANT Respiratory Rate 16 04/09/2012 9:50 AM RN LACTATION CONSULTANT Height 1.6 m (5' 2.99") 04/12/2013 1:58 PM RN LACTATION CONSULTANT Weight 76.6 kg (168 lb 14 oz) 04/12/2013 1:58 PM RN LACTATION CONSULTANT Body Mass Index 29.92 04/12/2013 1:58 PM RN LACTATION CONSULTANT Oxygen Saturation 98% 04/09/2012 9:50 AM RN LACTATION CONSULTANT Plan of Care Health Maintenance Due Date [...]
[2016-07-30] MEDS ORDERED: KETOROLAC TROMETHAMINE 60 MG/2 ML VIAL IM ONE ×2 (19:58→20:00)
[2016-07-30] MEDS ORDERED: HYDROcodone/ACETAMINOPHEN 1 EACH TABLET PO ONE (20:12)
[2016-07-30] MEDS ORDERED: HYDROcodone/ACETAMINOPHEN 1 EACH TABLET ONE (20:13)
[2016-07-30 21:05] VITALS: BP 128/86
== END 2016-07-30 20:15 | disposition home or self-care (01) ==
LOC: ER 18:06
DX: N20.0 Calculus of kidney (principal); N23 Unspecified renal colic; N30.01 Acute cystitis with hematuria

== ENCOUNTER 2016-07-31 14:37 | Emergency (ER) | payer BC ==
[2016-07-31] MEDS ORDERED: ONDANSETRON HCL/PF 2 MG/ML VIAL IV ONE (15:02)
[2016-07-31] MEDS ORDERED: HYDROmorphone HCL 1 MG/ML DISP.SYRIN IM ONE (15:02)
--- OUTSIDE RECORDS SUMMARY | 2016-07-31 15:04 | XMS REPORT | Continuity of Care Document ---
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 Overview: Overview: Other specified pre-operative examination 07/09/2010 Overview: Overview: CHAPARRO NEWTON MD Calculus of ureter 07/09/2010 Overview: Overview: CHAPARRO NEWTON MD Personal history of urinary calculi 07/04/2010 Overview: Overview: CHAPARRO NEWOTN MD Overview: HARMONY BRUNO MD Myalgia and myositis 06/13/2010 Overview: Overview: NIMO DIAZ MD Urinary tract infection 12/10/2009 Overview: Overview: NIMO DIAZ MD Encounter for long-term (current) use of other medications 09/24/2009 Overview: Overview: NIMO DIAZ MD Ankylosing spondylitis ([facility]) 04/19/2007 Overview: Overview: NIMO DIAZ MD Most Recent Encounters Date Type Specialty Providers Description 07/28/2016 Data Import Social History Tobacco Use Types Packs/Day Years Used Date Never Smoker Smokeless Tobacco: Never Used Tobacco Cessation:Counseling Given: No Comments: Alcohol Use Drinks/Week oz/Week Comments Yes occ Last Filed Vital Signs Vital Sign Reading Time Taken Blood Pressure 123/80 04/07/2016 3:12 PM ALUMNI RELATIONS MANAGER Pulse 94 04/07/2016 3:12 PM ALUMNI RELATIONS MANAGER Temperature 36.8 C (98.3 F) 06/03/2011 9:19 AM ALUMNI RELATIONS MANAGER Respiratory Rate 18 11/01/2014 9:47 AM CDT Height 1.6 m (5' 3") 05/28/2011 2:56 PM ALUMNI RELATIONS MANAGER Weight 96.163 kg (212 lb) 04/07/2016 3:12 PM ALUMNI RELATIONS MANAGER Body Mass Index 37.56 04/07/2016 3:12 PM ALUMNI RELATIONS MANAGER Oxygen Saturation - - Plan of Care Health Maintenance Due Date Last Done Comments Tetanus/Pertussis (1 - Tdap) 11/11/2007 Pap Smear 2009 Influenza Immunization (#1) 2016 Results from Last 3 Months Not on file
--- OUTSIDE RECORDS SUMMARY | 2016-07-31 15:05 | XMS REPORT | Continuity of Care Document ---
:1990 Author Organization [facility] ([facility]) Address [address] [place] [address] Phone [phone] Care Team Providers Name Role Phone Melquiades Sims Primary Care Provider [phone] Source Comments This disclosure is being made pursuant to the Care Everywhere program, applicable federal and state laws, and may not contain all informaitonavailable regarding this patient.[facility] ([facility]) Active Allergies and Adverse Reactions Allergen [...] spondylitis 01/29/2009 Overview: * Diagnosed 2006 in [place] - atypical acute presentation, non-responsive to prednisone, [...] Taken Blood Pressure 125/70 04/12/2013 1:58 PM COPPER MINER Pulse 105 02/22/2013 1:57 PM CDT Temperature 35.8 C (96.4 F) 04/12/2013 1:58 PM COPPER MINER Respiratory Rate 16 04/09/2012 9:50 AM COPPER MINER Height 1.6 m (5' 2.99") 04/12/2013 1:58 PM COPPER MINER Weight 76.6 kg (168 lb 14 oz) 04/12/2013 1:58 PM COPPER MINER Body Mass Index 29.92 04/12/2013 1:58 PM COPPER MINER Oxygen Saturation 98% 04/09/2012 9:50 AM COPPER MINER Plan of Care Health Maintenance Due Date [...]
[2016-07-31] MEDS ORDERED: HYDROmorphone HCL 1 MG/ML DISP.SYRIN ONE (15:21)
[2016-07-31] MEDS ORDERED: ONDANSETRON 4 MG TAB.RAPDIS ONE (15:21)
[2016-07-31] MEDS ORDERED: ONDANSETRON 4 MG TAB.RAPDIS PO ONE (15:27)
--- NOTE | 2016-07-31 16:37 | ERNOTE ---
ER Female HPI Stated Complaint: KIDNEY STONE Presenting Symptoms: other - nausea and flank pain Time Seen by Provider: 07/31/16 14:47 Immunizations: IMMUNIZATION HX Immunizations Up to Date Yes History of Influenza Vaccine No Hx Pneumococcal Vaccination No Allergies/Adverse Reactions: Allergies infliximab [From Remicade] Adverse Reaction (Severe, Verified 07/31/16 14:43) Anaphylaxis metoclopramide HCl [From Reglan] Adverse Reaction (Intermediate, Verified 14:43) Muscle Pain morphine Adverse Reaction (Intermediate, Verified 07/31/16 14:43) Hives ustekinumab [From Stelara] Adverse Reaction (Intermediate, Verified 07/31/16 14: 43) Headache Home Medications: HOME MEDICATIONS HYDROcodone/ACETAMINOPHEN [Vicodin 5-300 mg Tablet] 1 tab PO Q6H PRN #20 tablet 10/12/15 [Last Taken 06/27/16 18:30] Ibuprofen [Motrin] 800 mg PO TID PRN 06/27/16 [Last Taken 06/27/16 17:00] Levonorgestrel [Mirena] 1 each IY DAILY 06/27/16 [Last Taken Unknown] HYDROcodone/ACETAMINOPHEN [[place] 5-325] 1 each PO Q4H #20 tablet 07/30/16 [Last Taken Unknown] Nitrofurantoin/Nitrofuran Mac [Macrobid] 100 mg PO Q12H #14 capsule 07/30/16 [ Last Taken Unknown] Tamsulosin HCl [Flomax] 0.4 mg PO DAILY@1800 #7 capsule 07/30/16 [Last Taken Unknown] Ondansetron [Zofran Odt] 4 mg PO Q6H PRN #20 tab 07/31/16 [Last Taken Unknown] Prochlorperazine [Compazine] 25 mg RC BID PRN #14 supp.rect 07/31/16 [Last Taken Unknown] - History of Present Illness Narrative: Patient was seen here yesterday by me and was put on a prescription for [place] which seemed to help the pain however the nausea got worse and she was throwing up her pain medicine so she shows up today with nausea and continuing pain. Timing: Present: intermittent Quality: Present: moderate Onset Location: Present: right flank Radiation: Present: none Activities at Onset: Present: none Review of Systems - Review of Systems Constitutional: Present: See HPI EYE: Present: no symptoms reported ENT: Present: no symptoms reported Respiratory: Present: no symptoms reported Cardiology: Present: no symptoms reported Gastrointestinal/Abdominal: Present: nausea, vomiting Genitourinary: Present: pain Musculoskeletal: Present: no symptoms reported Skin: Present: no symptoms reported Neurological: Present: no symptoms reported Endocrine: Present: no symptoms reported Hematologic/Lymphatic: Present: no symptoms reported Psych: Present: no symptoms reported - Patient's Past Medical History Patient History - Medical: Anemia, Chronic Pain, Fibromyalgia, Kidney stone, UTI 'S, Other Patient History - Cardiac/Respiratory: No pertinent hx, Asthma Patient History - Cancer: No Hx of Cancer Patient History - Surgical Procedures: Appendectomy, Cholecystectomy, T & A Patient History - Other: None - Family History Mother Family History - Medical: Diabetes Type 2 Family History - Cardiac/Respiratory: No pertinent hx Father Family History - Cardiac/Respiratory: COPD - Social History Living Situations: home Abuse History: No History of abuse Psych History: No pertinent hx Alcohol Use: rarely Drug Use: none - Immunizations Immunizations Up to Date: Yes Hx Pneumococcal Vaccination: No History of Influenza Vaccine: No Physical Exam - Physical Exam General Appearance: Present: wd/wn, alert, moderate distress Eye Exam: Normal inspection: bilateral, PERRL: bilateral Ears, Nose, Throat: Present: normal ENT inspection, H, normal pharynx Neck: Present: normal inspection, nontender Respiratory: Present: no respiratory distress, normal breath sounds, no accessory muscle use, chest nontender, lungs clear Cardiovascular/Chest: Present: regular rate, rhythm, no murmur, normal peripheral pulses Gastrointestinal/Abdominal: Present: normal bowel sounds, nontender, nondistended, soft, no organomegaly Rectal Exam: Present: deferred Back Exam: Present: normal range of motion, CVA tenderness (R) Extremity Exam: Present: normal inspection, non-tender, no edema, normal range of motion Neurological Exam: Present: alert, oriented, normal mood/affect Skin Exam: Present: normal color, warm/dry Lymphatic Exam: Present: no adenopathy ED Progress - Vital Signs Patient's Vital Signs:: I have reviewed the patient's vital signs. Vital Signs: Vital Signs 07/31/16 14:40 Temperature 36.8 C Pulse Rate 110 H Respiratory 12 Rate Blood Pressure 133/88 O2 Sat by Pulse 100 Oximetry - Progress/Reassessment Chief Complaint: Genitourinary Problem Progress:: Improved Plan - Plan Plan: Is given 1 mg of Dilaudid IM which helped with the pain however the Zofran did not help with the nausea. Patient does have an appointment tomorrow with [facility] though we will try to give her a prescription for Compazine suppositories and perhaps some Zofran ODT for any breakthrough nausea or vomiting. Departure Clinical Impression: Kidney stones, Renal colic on right side - Departure Disposition: Home self-care Condition: Good Instructions: Renal Colic, [id number], Kidney Stones, [id number] Referrals: Melquiades Sims DO [Primary Care Provider] - Prescriptions: Ondansetron [Zofran Odt] 4 mg PO Q6H PRN #20 tab PRN Reason: Nausea And Vomiting Prochlorperazine [Compazine] 25 mg RC BID PRN #14 supp.rect PRN Reason: Headache
[2016-07-31] MEDS ORDERED: PROCHLORPERAZINE 25 MG SUPP.RECT RC ONE (17:00)
[2016-07-31 17:11] VITALS: BP 133/83
== END 2016-07-31 17:11 | disposition home or self-care (01) ==
LOC: ER 14:37
DX: N20.0 Calculus of kidney (principal); Z87.442 Personal history of urinary calculi; Z87.440 Personal history of urinary (tract) infections; G89.29 Other chronic pain

== ENCOUNTER 2016-08-03 14:22 | Emergency (ER) | payer BC ==
[2016-08-03] MEDS ORDERED: KETOROLAC TROMETHAMINE 30 MG/ML VIAL IV ONE (14:43)
[2016-08-03] MEDS ORDERED: ONDANSETRON HCL/PF 2 MG/ML VIAL IV ONE (14:43)
[2016-08-03] MEDS ORDERED: NORMAL SALINE 1,000 ML IV ONE (14:43)
--- OUTSIDE RECORDS SUMMARY | 2016-08-03 14:44 | XMS REPORT | Continuity of Care Document ---
:1990 Author Organization [facility] ([facility]) Address [address] [place] [address] Phone [phone] Care Team Providers Name Role Phone Melquiades Sims Primary Care Provider [phone] Source Comments This disclosure is being made pursuant to the Care Everywhere program, applicable federal and state laws, and may not contain all informaitonavailable regarding this patient.[facility] ([facility]) Active Allergies and Adverse Reactions Allergen Noted [...] spondylitis 01/29/2009 Overview: * Diagnosed 2006 in [place] - atypical acute presentation, non-responsive to prednisone, [...] Taken Blood Pressure 125/70 04/12/2013 1:58 PM SALES ENABLEMENT MANAGER Pulse 105 02/22/2013 1:57 PM CDT Temperature 35.8 C (96.4 F) 04/12/2013 1:58 PM SALES ENABLEMENT MANAGER Respiratory Rate 16 04/09/2012 9:50 AM SALES ENABLEMENT MANAGER Height 1.6 m (5' 2.99") 04/12/2013 1:58 PM SALES ENABLEMENT MANAGER Weight 76.6 kg (168 lb 14 oz) 04/12/2013 1:58 PM SALES ENABLEMENT MANAGER Body Mass Index 29.92 04/12/2013 1:58 PM SALES ENABLEMENT MANAGER Oxygen Saturation 98% 04/09/2012 9:50 AM SALES ENABLEMENT MANAGER Plan of Care Health Maintenance Due Date [...]
--- OUTSIDE RECORDS SUMMARY | 2016-08-03 14:44 | XMS REPORT | Continuity of Care Document ---
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/2010 Overview: Overview: Other specified [...] Overview: NIMO DIAZ MD Ankylosing spondylitis ([facility]) 04/19/2007 Overview: Overview: NIMO DIAZ MD Most Recent Encounters Date Type Specialty Providers Description 07/28/2016 Data Import Social History Tobacco Use Types Packs/Day Years Used Date Never Smoker Smokeless Tobacco: Never Used Tobacco Cessation:Counseling Given: No Comments: Alcohol Use Drinks/Week oz/Week Comments Yes occ Last Filed Vital Signs Vital Sign Reading Time Taken Blood Pressure 123/80 04/07/2016 3:12 PM IT SUPPORT ANALYST Pulse 94 04/07/2016 3:12 PM IT SUPPORT ANALYST Temperature 36.8 C (98.3 F) 06/03/2011 9:19 AM IT SUPPORT ANALYST Respiratory Rate 18 11/01/2014 9:47 AM CDT Height 1.6 m (5' 3") 05/28/2011 2:56 PM IT SUPPORT ANALYST Weight 96.163 kg (212 lb) 04/07/2016 3:12 PM IT SUPPORT ANALYST Body Mass Index 37.56 04/07/2016 3:12 PM IT SUPPORT ANALYST Oxygen Saturation - - Plan of Care Health Maintenance Due Date Last Done Comments Tetanus/Pertussis (1 - Tdap) 11/11/2007 Pap Smear 2009 Influenza Immunization (#1) 2016 Results from Last 3 Months Not on file
--- NOTE | 2016-08-03 14:51 | ERNOTE ---
Abdominal HPI - Narrative Date of Service: 08/03/16 - General Chief Complaint: Abdominal Pain Time Seen by Provider: 08/03/16 14:37 Source: patient Exam Limitations: no limitations - Immun/Allergies/Home Medications Immunizatons: IMMUNIZATION HX Immunizations Up to Date Yes History of Influenza Vaccine No Hx Pneumococcal Vaccination No Allergies/Adverse Reactions: Allergies infliximab [From Remicade] Adverse Reaction (Severe, Verified 08/03/16 14:32) Anaphylaxis metoclopramide HCl [From Reglan] Adverse Reaction (Intermediate, Verified 14:32) Muscle Pain morphine Adverse Reaction (Intermediate, Verified 08/03/16 14:32) Hives ustekinumab [From Stelara] Adverse Reaction (Intermediate, Verified 08/03/16 14: 32) Headache Home Medications: HOME MEDICATIONS HYDROcodone/ACETAMINOPHEN [Vicodin 5-300 mg Tablet] 1 tab PO Q6H PRN #20 tablet 10/12/15 [Last Taken 06/27/16 18:30] Ibuprofen [Motrin] 800 mg PO TID PRN 06/27/16 [Last Taken 06/27/16 17:00] Levonorgestrel [Mirena] 1 each IY DAILY 06/27/16 [Last Taken Unknown] HYDROcodone/ACETAMINOPHEN [[place] 5-325] 1 each PO Q4H #20 tablet 07/30/16 [Last Taken Unknown] Nitrofurantoin/Nitrofuran Mac [Macrobid] 100 mg PO Q12H #14 capsule 07/30/16 [ Last Taken Unknown] Tamsulosin HCl [Flomax] 0.4 mg PO DAILY@1800 #7 capsule 07/30/16 [Last Taken Unknown] Ondansetron [Zofran Odt] 4 mg PO Q6H PRN #20 tab 07/31/16 [Last Taken Unknown] Prochlorperazine [Compazine] 25 mg RC BID PRN #14 supp.rect 07/31/16 [Last Taken Unknown] Dicyclomine HCl [Bentyl] 10 mg PO TID PRN #10 capsule 08/03/16 [Last Taken Unknown] Ondansetron [Zofran Odt] 8 mg PO Q8H PRN #30 tab 08/03/16 [Last Taken Unknown] Phenazopyridine HCl [Pyridium] 100 mg PO TID #6 tab 08/03/16 [Last Taken Unknown ] Promethazine HCl [Phenergan] 25 mg PO QID PRN #30 tab 08/03/16 [Last Taken Unknown] - History of Present Illness Narrative: Pt. comes in with c/o R flank pain and RLQ pain that started four days ago. Pt. also states that since the pain onset she has developed NVD, fever, chills, malaise, and dehydration. Pt. denies the ability to keep down any foods or fluid for three days. pt. is also unable to keep down medications that she is prescribed. Pt. saw her urologist yesterday for stones in her kidneys that they felt they would not need treatment for a month. Pt. denies any CP or SOB. Review of Systems - Review of Systems Constitutional: Present: fever, chills, weakness, fatigue, malaise EYE: Present: no symptoms reported ENT: Present: no symptoms reported Respiratory: Present: no symptoms reported. Absent: shortness of breath, cough , wheezing Cardiology: Present: no symptoms reported. Absent: chest pain, palpitations, edema Gastrointestinal/Abdominal: Present: nausea, vomiting, diarrhea, abdominal pain Genitourinary: Present: no symptoms reported. Absent: frequency, decreased urinary output Musculoskeletal: Present: no symptoms reported. Absent: back pain, joint pain Skin: Present: no symptoms reported Neurological: Present: no symptoms reported. Absent: headache, dizziness/light- headedness, numbness, tingling All Other Systems: All systems neg except as marked - Patient's Past Medical History Patient History - Medical: Anemia, Chronic Pain, Fibromyalgia, Kidney stone, UTI 'S Patient History - Cardiac/Respiratory: No pertinent hx, Asthma Patient History - Cancer: No Hx of Cancer Patient History - Surgical Procedures: Appendectomy, Cholecystectomy, T & A Patient History - Other: None LMP (females 10-50): other - Family History Mother Family History - Medical: Diabetes Type 2 Family History - Cardiac/Respiratory: No pertinent hx Father Family History - Cardiac/Respiratory: COPD - Social History Living Situations: other Abuse History: No History of abuse Psych History: No pertinent hx Smoking Status: Never smoker Do you dip or chew tobacco: No Alcohol Use: rarely Drug Use: none - Immunizations Immunizations Up to Date: Yes Hx Pneumococcal Vaccination: No History of Influenza Vaccine: No Physical Exam - Physical Exam General Appearance: Present: wd/wn, alert, no apparent distress Eye Exam: Normal inspection: bilateral, PERRL: bilateral, EOMI: bilateral Ears, Nose, Throat: Present: normal ENT inspection, normal pharynx Neck: Present: normal inspection, nontender. Absent: lymphadenopathy (R), lymphadenopathy (L) Respiratory: Present: no respiratory distress, normal breath sounds, no accessory muscle use, chest nontender, lungs clear Cardiovascular/Chest: Present: no murmur, normal peripheral pulses, tachycardia Gastrointestinal/Abdominal: Present: nondistended, soft, no organomegaly, tenderness - RLQ, abnormal bowel sounds - hyper Back Exam: Present: normal range of motion, no vertebral tenderness, CVA tenderness (R) Extremity Exam: Present: normal inspection, non-tender, normal range of motion, no edema Neurological Exam: Present: alert, oriented, normal mood/affect, no motor/ sensory deficits, digital campaign manager II-XII nml as tested, normal cerebellar test Skin Exam: Present: warm/dry, pallor. Absent: skin rash ED Progress - Date and Time Seen: Date and Time: 08/03/16 17:24 As pt. is the same condition as she has been in the past I feel that it would not be prudent to re CT pt. Also feel that pt. multiple episodes of antibiotics have destroyed her natural urinary and gastroenterological bacteria. Will refer to urogynocology for chronic aeseptic cystitis and start on probiotics. - Results and Orders Patient's Lab Results:: I have reviewed the patient's lab results. - Vital Signs Patient's Vital Signs:: I have reviewed the patient's vital signs. Vital Signs: Vital Signs 08/03/16 14:27 Temperature 37.0 C Pulse Rate 111 H Respiratory 20 Rate Blood Pressure 138/92 O2 Sat by Pulse 100 Oximetry - Progress/Reassessment Chief Complaint: Abdominal Pain Progress:: Improved Departure - Departure Clinical Impression: Cystitis Antibiotic associated enterocolitis Qualifiers: Encounter type: initial encounter Injury intent: undetermined intent Qualified Code(s): T36.94XA - Poisoning by unspecified systemic antibiotic, undetermined, initial encounter Disposition: Home self-care Condition: Good Instructions: Interstitial Cystitis, Colitis Additional Instructions: Please follow up with Dr Segovia to discuss interstitial cystitis and follow up with your primary provider to discuss the chronisc nausea and vomiting. Referrals: Melquiades Sims DO [Primary Care Provider] - Miquel Thomas DO [Staff Physician] - Prescriptions: Dicyclomine HCl [Bentyl] 10 mg PO TID PRN #10 capsule PRN Reason: Pain Ondansetron [Zofran Odt] 8 mg PO Q8H PRN #30 tab PRN Reason: Nausea Phenazopyridine HCl [Pyridium] 100 mg PO TID #6 tab Promethazine HCl [Phenergan] 25 mg PO QID PRN #30 tab PRN Reason: nausea/vomiting
[2016-08-03 15:00] LABS: Urine Appearance Clear; Urine Bilirubin Negative (NEGATIVE); Urine Color Yellow; Urine Ketone Negative (NEGATIVE)
[2016-08-03 15:01] LABS: Urine Bacteria 1+; Urine Blood 150 /ul (NEGATIVE); Urine Nitrite Negative (NEGATIVE); Urine Protein Negative (NEGATIVE); Urine RBC 0-5 /hpf (0-5); Urine Urobilinogen Normal (NORMAL); Urine WBC 0-5 /hpf (0-5)
[2016-08-03] MEDS ORDERED: KETOROLAC TROMETHAMINE 30 MG/ML VIAL ONE (15:11)
[2016-08-03] MEDS ORDERED: ONDANSETRON HCL/PF 2 MG/ML VIAL ONE (15:11)
[2016-08-03 15:15] LABS: Hematocrit 40.2 % (37.0-47.0); Mean Cell Volume 89.3 fl (78-100); Mean Corpuscular Hemoglobin 28.9 pg (27-31); Mean Corpuscular Hgb Conc 32.3 g/dl (32-36); Mean Platelet Volume 9.6 fl (6.0-9.5); Neutrophil # 5.7 K/mm3 (1.3-6.0); Platelet Count 269 K/mm3 (150-450); Red Cell Distribution Width 12.9 % (11.5-14.0); White Blood Count 8.4 K/mm3 (4.0-10.5)
[2016-08-03 15:29] LABS: Anion Gap 17.6 mmol/L (6.8-13.8); BUN/Creatinine Ratio 14.5 (9.0-21.6); Bilirubin, Total 0.3 mg/dL (0.0-1.1); CRP 2.9 mg/dL (0.0-0.9); Ca. Corrected For Albumin 9.4 mg/dL (8.4-10.2); Calcium * 9.7 mg/dL (7.9-10.9); Carbon Dioxide 22.7 mmol/L (24-32.6); Potassium 4.3 mmol/L (3.4-4.6); Total Protein 8.3 gm/dL (6.2-8.2)
[2016-08-03 17:00] LABS: Urine Appearance Clear; Urine Bilirubin Negative (NEGATIVE); Urine Color Yellow; Urine Ketone Negative (NEGATIVE)
[2016-08-03 17:01] LABS: Urine Bacteria None Seen; Urine Nitrite Negative (NEGATIVE); Urine Protein Negative (NEGATIVE); Urine Urobilinogen Normal (NORMAL); Urine WBC 0-5 /hpf (0-5); Urine pH 6.5 pH (5.0-7.0)
[2016-08-03 17:10] LABS: Urine RBC 0-5 /hpf (0-5)
[2016-08-03 17:11] LABS: Urine Blood 50 /ul (NEGATIVE)
[2016-08-03] MEDS ORDERED: PHENAZOPYRIDINE HCL 100 MG TABLET PO ONE ×2 (17:24→18:20)
[2016-08-03] MEDS ORDERED: DICYCLOMINE HCL 10 MG/ML AMPUL IM ONE ×2 (17:24→17:32)
[2016-08-03] MEDS ORDERED: PHENAZOPYRIDINE HCL 100 MG TABLET ONE ×2 (17:32→18:26)
[2016-08-03 18:19] VITALS: BP 103/59
[2016-08-03] MEDS ORDERED: PROMETHAZINE HCL 25 MG TABLET PO ONE (18:20)
[2016-08-03] MEDS ORDERED: DICYCLOMINE HCL 10 MG CAPSULE PO ONE (18:20)
[2016-08-03] MEDS ORDERED: DICYCLOMINE HCL 20 MG TABLET PO ONE (18:25)
[2016-08-03] MEDS ORDERED: PROMETHAZINE HCL 25 MG TABLET ONE (18:26)
[2016-08-03] MEDS ORDERED: DICYCLOMINE HCL 20 MG TABLET ONE (18:28)
== END 2016-08-03 18:35 | disposition home or self-care (01) ==
LOC: ER 14:22
DX: N30.90 Cystitis, unspecified without hematuria (principal); T36 Poisoning by, adverse effect of and underdosing of systemic antibiotics

== ENCOUNTER 2016-10-08 07:04 | Emergency (ER) | payer BC ==
[2016-10-08] MEDS ORDERED: NORMAL SALINE 1,000 ML IV ONE (07:20)
[2016-10-08] MEDS ORDERED: ONDANSETRON HCL/PF 2 MG/ML VIAL IV ONE (07:20)
[2016-10-08] MEDS ORDERED: ORPHENADRINE CITRATE 30 MG/ML VIAL IV ONE (07:20)
[2016-10-08] MEDS ORDERED: KETOROLAC TROMETHAMINE 30 MG/ML VIAL IV ONE (07:20)
--- OUTSIDE RECORDS SUMMARY | 2016-10-08 07:21 | XMS REPORT | Continuity of Care Document ---
:1990 Author Organization [facility] ([facility]) Address [address] [place] [address] Phone [phone] Care Team Providers Name Role Phone Melquiades Sims Primary Care Provider [phone] Source Comments This disclosure is being made pursuant to the Care Everywhere program, applicable federal and state laws, and may not contain all informaitonavailable regarding this patient.[facility] ([facility]) Active Allergies and Adverse Reactions Allergen [...] spondylitis 01/29/2009 Overview: * Diagnosed 2006 in [place] - atypical acute presentation, non-responsive to prednisone, [...] Taken Blood Pressure 125/70 04/12/2013 1:58 PM COAL CRUSHER OPERATOR Pulse 105 02/22/2013 1:57 PM CDT Temperature 35.8 C (96.4 F) 04/12/2013 1:58 PM COAL CRUSHER OPERATOR Respiratory Rate 16 04/09/2012 9:50 AM COAL CRUSHER OPERATOR Height 1.6 m (5' 2.99") 04/12/2013 1:58 PM COAL CRUSHER OPERATOR Weight 76.6 kg (168 lb 14 oz) 04/12/2013 1:58 PM COAL CRUSHER OPERATOR Body Mass Index 29.92 04/12/2013 1:58 PM COAL CRUSHER OPERATOR Oxygen Saturation 98% 04/09/2012 9:50 AM COAL CRUSHER OPERATOR Plan of Care Health Maintenance Due Date [...]
--- OUTSIDE RECORDS SUMMARY | 2016-10-08 07:21 | XMS REPORT | Continuity of Care Document ---
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[facility]) 07/09/2010 Overview: Overview: Other specified pre-operative [...] Overview: Overview: NIMO DIAZ MD Ankylosing spondylitis ([facility]) 04/19/2007 Overview: Overview: NIMO DIAZ MD Social History Tobacco Use Types Packs/Day Years Used Date Never Smoker Smokeless Tobacco: Never Used Tobacco Cessation:Counseling Given: No Comments: Alcohol Use Drinks/Week oz/Week Comments Yes occ Last Filed Vital Signs Vital Sign Reading Time Taken Blood Pressure 123/80 04/07/2016 3:12 PM MECHANICAL PRODUCT ENGINEER Pulse 94 04/07/2016 3:12 PM MECHANICAL PRODUCT ENGINEER Temperature 36.8 C (98.3 F) 06/03/2011 9:19 AM MECHANICAL PRODUCT ENGINEER Respiratory Rate 18 11/01/2014 9:47 AM CDT Height 1.6 m (5' 3") 05/28/2011 2:56 PM MECHANICAL PRODUCT ENGINEER Weight 96.163 kg (212 lb) 04/07/2016 3:12 PM MECHANICAL PRODUCT ENGINEER Body Mass Index 37.56 04/07/2016 3:12 PM MECHANICAL PRODUCT ENGINEER Oxygen Saturation - - Plan of Care Health Maintenance Due Date Last Done Comments Tetanus/Pertussis (1 - Tdap) 11/11/2007 Pap Smear 2009 Influenza Immunization (#1) 2016 Results from Last 3 Months Not on file
--- NOTE | 2016-10-08 07:29 | ERNOTE ---
<Maximo Alas - Last Filed: 10/08/16 07:46> Headache ER HPI - General Presenting Symptoms: headache Time Seen by Provider: 10/08/16 07:14 Source: patient Exam Limitations: no limitations - Immun/Allergies/Home Medications Immunizations: IMMUNIZATION HX Immunizations Up to Date Yes History of Influenza Vaccine No Hx Pneumococcal Vaccination No Allergies/Adverse Reactions: Allergies infliximab [From Remicade] Adverse Reaction (Severe, Verified 10/08/16 07:10) Anaphylaxis metoclopramide HCl [From Reglan] Adverse Reaction (Intermediate, Verified 07:10) Muscle Pain morphine Adverse Reaction (Intermediate, Verified 10/08/16 07:10) Hives ustekinumab [From Stelara] Adverse Reaction (Intermediate, Verified 10/08/16 07: 10) Headache Home Medications: HOME MEDICATIONS HYDROcodone/ACETAMINOPHEN [Vicodin 5-300 mg Tablet] 1 tab PO Q6H PRN #20 tablet 10/12/15 [Last Taken 06/27/16 18:30] Ibuprofen [Motrin] 800 mg PO TID PRN 06/27/16 [Last Taken 06/27/16 17:00] Levonorgestrel [Mirena] 1 each IY DAILY 06/27/16 [Last Taken Unknown] Ondansetron [Zofran Odt] 4 mg PO Q6H PRN #20 tab 07/31/16 [Last Taken Unknown] Ondansetron [Zofran Odt] 8 mg PO Q8H PRN #30 tab 08/03/16 [Last Taken Unknown] Promethazine HCl [Phenergan] 25 mg PO QID PRN #30 tab 08/03/16 [Last Taken Unknown] - Pain Pain Score: 8 - History of Present Illness Narrative: Pt states she had a little headache when she went to bed but thought it would go away with sleep. She woke up early this am with a severe headache. She tried getting into the shower but headache did not improve and she began vomiting. Unable to take any oral meds due to vomiting she presented to the ED. Activity at onset: other - sleep Timing of Headache: cannot pinpoint onset Quality: Present: throbbing Severity Maximum: Present: severe Severity-Currently: Present: severe Headache frequency: Present: occasional headaches Modifying Factors - (Worsens): Reports: movement, exposure to light Associated Symptoms: Reports: denies symptoms Review of Systems - Review of Systems Constitutional: Absent: recent illness, fever EYE: Present: no symptoms reported ENT: Present: other - had abscessed tooth, saw dentist yesterday and on antibiotics Cardiology: Present: no symptoms reported Gastrointestinal/Abdominal: Present: no symptoms reported Genitourinary: Present: no symptoms reported Musculoskeletal: Present: no symptoms reported Skin: Present: no symptoms reported Neurological: Present: no symptoms reported Endocrine: Present: no symptoms reported - Patient's Past Medical History Patient History - Medical: Anemia, Chronic Pain, Fibromyalgia, Kidney stone, UTI 'S Patient History - Cardiac/Respiratory: No pertinent hx, Asthma Patient History - Cancer: No Hx of Cancer Patient History - Surgical Procedures: Appendectomy, Cholecystectomy, T & A Patient History - Other: None - Family History Mother Family History - Medical: Diabetes Type 2 Family History - Cardiac/Respiratory: No pertinent hx Father Family History - Cardiac/Respiratory: COPD - Social History Living Situations: home Abuse History: No History of abuse Psych History: No pertinent hx Alcohol Use: rarely Drug Use: none - Immunizations Immunizations Up to Date: Yes Hx Pneumococcal Vaccination: No History of Influenza Vaccine: No Physical Exam - Physical Exam General Appearance: Present: wd/wn, alert, mild distress Eye Exam: Normal inspection: bilateral, PERRL: bilateral, EOMI: bilateral Ears, Nose, Throat: Present: normal ENT inspection Neck: Present: normal inspection, nontender Back Exam: Present: normal inspection, normal range of motion Extremity Exam: Present: normal inspection, no edema Neurological Exam: Present: alert, oriented Skin Exam: Present: normal color, warm/dry ED Progress - Vital Signs Patient's Vital Signs:: I have reviewed the patient's vital signs. Vital Signs: Vital Signs 10/08/16 07:08 Temperature 35.2 C L Pulse Rate 112 H Respiratory 12 Rate Blood Pressure 112/66 O2 Sat by Pulse 97 Oximetry - Progress/Reassessment Chief Complaint: Headache - Transfer of Care Physician Sign Out: Maximo Alas Receiving Physician: Luana Goel Pending Results: Pain-control Expected Disposition: Discharge Departure Clinical Impression: Headache Qualifiers: Headache type: unspecified Headache chronicity pattern: acute headache Intractability: not intractable Qualified Code(s): R51 - Headache - Departure Disposition: Home self-care Condition: Good Instructions: Migraine Headache, [id number] Additional Instructions: call your doctor for follow up Referrals: Melquiades Sims, [Primary Care Provider] - <Luana Geol - Last Filed: 10/08/16 09:54> Headache ER HPI - General Presenting Symptoms: headache Source: patient Exam Limitations: no limitations - Immun/Allergies/Home Medications Immunizations: IMMUNIZATION HX Immunizations Up to Date Yes History of Influenza Vaccine No Hx Pneumococcal Vaccination No Physical Exam - Physical Exam General Appearance: Present: wd/wn, alert Neck: Present: supple, full range of motion Respiratory: Present: no respiratory distress Neurological Exam: Present: alert, oriented, normal mood/affect Skin Exam: Present: normal color, warm/dry ED Progress - Vital Signs Patient's Vital Signs:: I have reviewed the patient's vital signs. Vital Signs: Vital Signs 10/08/16 10/08/16 07:08 08:05 Temperature 35.2 C L Pulse Rate 112 H 98 Respiratory 12 14 Rate Blood Pressure 112/66 142/87 O2 Sat by Pulse 97 100 Oximetry - Progress/Reassessment Progress Note-Subjective: 10/08/16 08:49 Patient had a mild headache when going to bed, then woke up with a severe headache around 06:00. She only has occasional headaches, but was admitted in june for a severe headache after one dose of stelara, no severe headaches since. She has chronic pain from ankylosing spondylitis and fibromyalgia as well a recurrent kidney stones, is not on any rheumatologic medications at this point but take vicodin at least once daily. This head is on top of her head, severe with photophobia, sensitivity to noise, and vomiting, has never been on migraine medications. 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 The medications given here so far (toradol, zofran, norflex) have only given her slight relieve, pain 8/10 10/08/16 09:47 nausea resolved, headache down to 6/10.Patient is sleeping but easily aroused, states that she needs the pain to get down more to be able to go home and just sleep it off. She has had nubain and dilaudid in the past.
[2016-10-08] MEDS ORDERED: ONDANSETRON HCL/PF 2 MG/ML VIAL ONE (07:51)
[2016-10-08] MEDS ORDERED: ORPHENADRINE CITRATE 30 MG/ML VIAL ONE (07:51)
[2016-10-08] MEDS ORDERED: KETOROLAC TROMETHAMINE 30 MG/ML VIAL ONE (07:51)
[2016-10-08] MEDS ORDERED: SUMAtriptan SUCCINATE 6 MG/0.5 ML VIAL SC ONE ×2 (08:47→08:51)
[2016-10-08] MEDS ORDERED: PROMETHAZINE HCL 25 MG in DEXTROSE 5 % IN WATER 50 ML IV ONE ×2 (08:47)
[2016-10-08 09:03] VITALS: BP 136/84
[2016-10-08] MEDS ORDERED: NALBUPHINE HCL 20 MG/ML AMPUL IV ONE (09:46)
[2016-10-08] MEDS ORDERED: NALBUPHINE HCL 20 MG/ML AMPUL ONE ×2 (09:50→09:55)
== END 2016-10-08 10:39 | disposition home or self-care (01) ==
LOC: ER 07:04
DX: R51 Headache (principal); D64.9 Anemia, unspecified; G89.29 Other chronic pain; M79.7 Fibromyalgia; Z87.440 Personal history of urinary (tract) infections; Z87.442 Personal history of urinary calculi
CPT/HCPCS: 96365; 96372; 96375; 99284; J2405

== ENCOUNTER 2017-01-26 21:52 | Emergency (ER) | payer BC ==
[2017-01-26] MEDS ORDERED: KETOROLAC TROMETHAMINE 30 MG/ML VIAL IV ONE (22:19)
[2017-01-26] MEDS ORDERED: ONDANSETRON HCL/PF 2 MG/ML VIAL IV ONE (22:20)
[2017-01-26 22:26] LABS: Urine Bilirubin Negative (NEGATIVE); Urine Blood 25 /ul (NEGATIVE); Urine Ketone Negative (NEGATIVE); Urine Nitrite Negative (NEGATIVE); Urine Protein Negative (NEGATIVE); Urine Urobilinogen Normal (NORMAL)
[2017-01-26 22:33] LABS: Urine Appearance Slightly Cloudy; Urine Bacteria TRACE; Urine Color Yellow; Urine RBC TRACE /hpf (0-5); Urine WBC 0-5 /hpf (0-5)
[2017-01-26] MEDS ORDERED: KETOROLAC TROMETHAMINE 30 MG/ML VIAL ONE (22:33)
[2017-01-26] MEDS ORDERED: ONDANSETRON HCL/PF 2 MG/ML VIAL ONE (22:33)
--- NOTE | 2017-01-26 22:37 | ERNOTE ---
Back Pain ER HPI Presenting Symptoms: injury/pain to back Time Seen by Provider: 01/26/17 22:30 Source: patient Exam Limitations: no limitations Immunizations: IMMUNIZATION HX Immunizations Up to Date Yes History of Influenza Vaccine No Hx Pneumococcal Vaccination No Allergies/Adverse Reactions: Allergies infliximab [From Remicade] Adverse Reaction (Severe, Verified 01/26/17 22:16) Anaphylaxis metoclopramide HCl [From Reglan] Adverse Reaction (Intermediate, Verified 22:16) Muscle Pain morphine Adverse Reaction (Intermediate, Verified 01/26/17 22:16) Hives ustekinumab [From Stelara] Adverse Reaction (Intermediate, Verified 01/26/17 22: 16) Headache Home Medications: HOME MEDICATIONS HYDROcodone/ACETAMINOPHEN [Vicodin 5-300 mg Tablet] 1 tab PO Q6H PRN #20 tablet 10/12/15 [Last Taken 06/27/16 18:30] Ibuprofen [Motrin] 800 mg PO TID PRN 06/27/16 [Last Taken 06/27/16 17:00] Levonorgestrel [Mirena] 1 each IY DAILY 06/27/16 [Last Taken Unknown] Ondansetron [Zofran Odt] 4 mg PO Q6H PRN #20 tab 07/31/16 [Last Taken Unknown] Ciprofloxacin HCl [Cipro] 500 mg PO BID #20 tab 01/27/17 [Last Taken Unknown] Phenazopyridine HCl 200 mg PO TID #10 tablet 01/27/17 [Last Taken Unknown] Narrative: Pt had rapid onset of right flank pain around 20:00 tonight. Reminiscent of previous kidney stones. Timing: Reports: getting worse Quality/Severity: Reports: moderate, severe Location of pain: Reports: lower back - right Modifying Factors - (Improves): Reports: nothing Modifying Factors - (Worsens): Reports: nothing Associated Symptoms: Reports: sweating, problems urinating Prior Treament: Reports: similar symptoms before Review of Systems - Review of Systems Constitutional: Absent: recent illness EYE: Present: no symptoms reported ENT: Present: no symptoms reported Respiratory: Absent: shortness of breath Cardiology: Absent: chest pain Gastrointestinal/Abdominal: Present: See HPI. Absent: nausea, vomiting Genitourinary: Present: frequency Musculoskeletal: Present: back pain Skin: Present: no symptoms reported Neurological: Present: no symptoms reported Endocrine: Present: no symptoms reported Hematologic/Lymphatic: Present: no symptoms reported Psych: Present: no symptoms reported - Patient's Past Medical History Patient History - Medical: Anemia, Chronic Pain, Fibromyalgia, Kidney stone, UTI 'S Patient History - Cardiac/Respiratory: No pertinent hx, Asthma Patient History - Cancer: No Hx of Cancer Patient History - Surgical Procedures: Appendectomy, Cholecystectomy, T & A Patient History - Other: None - Family History Mother Family History - Medical: Diabetes Type 2 Family History - Cardiac/Respiratory: No pertinent hx Father Family History - Cardiac/Respiratory: COPD - Social History Living Situations: home Abuse History: No History of abuse Psych History: No pertinent hx Smoking Status: Never smoker Have you smoked in the past 12 months: No Alcohol Use: rarely Drug Use: none - Immunizations Immunizations Up to Date: Yes Hx Pneumococcal Vaccination: No History of Influenza Vaccine: No Physical Exam - Physical Exam General Appearance: Present: wd/wn, alert, mild distress Head Exam: Present: normal inspection, no evidence of injury Eye Exam: Normal inspection: bilateral Ears, Nose, Throat: Present: normal ENT inspection Neck: Present: normal inspection, nontender, supple Respiratory: Present: no respiratory distress, normal breath sounds, lungs clear Cardiovascular/Chest: Present: regular rate, rhythm, no murmur, normal peripheral pulses Gastrointestinal/Abdominal: Present: normal bowel sounds, nondistended, soft Back Exam: Present: normal range of motion, CVA tenderness (R), CVA tenderness ( L) Extremity Exam: Present: normal inspection, normal range of motion, no edema Neurological Exam: Present: alert, oriented, normal mood/affect, no motor/ sensory deficits Skin Exam: Present: normal color, warm/dry Lymphatic Exam: Present: no adenopathy ED Progress - Results and Orders Patient's Lab Results:: I have reviewed the patient's lab results. Results and Orders: Laboratory Tests 01/26/17 01/26/17 01/26/17 22:18 23:10 23:10 WBC 11.3 H Hgb 13.6 Hct 42.0 Plt Count 221 Sodium 135 Potassium 4.2 Chloride 102 Carbon Dioxide 24.4 Anion Gap 12.8 BUN 8 Creatinine 0.66 Random Glucose 97 Calcium 9.1 Total Bilirubin 0.2 AST 34 ALT 48 Alkaline Phosphatase 69 Total Protein 8.0 Albumin 3.7 Urine Color Yellow Urine Appearance Slightly cloudy Urine pH 7.0 Ur Specific [place] 1.010 Urine Protein Negative Urine Glucose (UA) Negative Urine Ketones Negative Urine Blood 25 H Urine Nitrate Negative Urine Bilirubin Negative Urine Urobilinogen Normal Ur Leukocyte Esterase 75 H Urine RBC Trace Urine WBC 0-5 Ur Epithelial Cells 0-5 Urine Bacteria Trace Urine Culture Comments Culture to follow - Vital Signs Patient's Vital Signs:: I have reviewed the patient's vital signs. Vital Signs: Vital Signs 01/26/17 22:14 Pulse Rate 120 H Respiratory 14 Rate Blood Pressure 134/95 O2 Sat by Pulse 98 Oximetry - Progress/Reassessment Chief Complaint: Back Pain Progress:: Improved Departure Clinical Impression: Pyelonephritis - Departure Disposition: Home Follow Up Needed Condition: Good Instructions: Pyelonephritis, Adult, [id number] Additional Instructions: drink plenty of water. Take medications regularly Referrals: Melquiades Sims DO [Primary Care Provider] - Prescriptions: Ciprofloxacin HCl [Cipro] 500 mg PO BID #20 tab Phenazopyridine HCl 200 mg PO TID #10 tablet
[2017-01-26 23:15] LABS: Hemoglobin 13.6 gm/dL (12.5-16.0); Mean Cell Volume 88.2 fl (78-100); Mean Corpuscular Hemoglobin 28.6 pg (27-31); Mean Corpuscular Hgb Conc 32.4 g/dl (32-36); Mean Platelet Volume 9.3 fl (6.0-9.5); Neutrophil # 7.5 K/mm3 (1.3-6.0); Neutrophil % 66.7 % (42-75.0); Platelet Count 221 K/mm3 (150-450); Red Blood Count 4.76 M/mm3 (4.2-5.4); Red Cell Distribution Width 13.2 % (11.5-14.0); White Blood Count 11.3 K/mm3 (4.0-10.5)
[2017-01-26 23:30] LABS: Albumin * 3.7 gm/dl (3.4-5.0); Anion Gap 12.8 mmol/L (6.8-13.8); BUN/Creatinine Ratio 12.1 (9.0-21.6); Bilirubin, Total 0.2 mg/dL (0.0-1.1); Calcium * 9.1 mg/dL (7.9-10.9); Carbon Dioxide 24.4 mmol/L (24-32.6); Potassium 4.2 mmol/L (3.4-4.6)
[2017-01-27] MEDS ORDERED: NALBUPHINE HCL 20 MG/ML AMPUL IV ONE (00:09)
[2017-01-27] MEDS ORDERED: CIPROFLOXACIN HCL 250 MG TABLET PO ONE (00:14)
[2017-01-27] MEDS ORDERED: NALBUPHINE HCL 20 MG/ML AMPUL ONE (00:31)
[2017-01-27] MEDS ORDERED: CIPROFLOXACIN HCL 250 MG TABLET ONE (00:31)
[2017-01-27 00:40] VITALS: BP 129/69
== END 2017-01-27 00:49 | disposition home or self-care (01) ==
LOC: ER 21:52
DX: N12 Tubulo-interstitial nephritis, not specified as acute or chronic (principal); D64.9 Anemia, unspecified; G89.29 Other chronic pain; M79.7 Fibromyalgia; Z87.442 Personal history of urinary calculi
CPT/HCPCS: 36415; 80053; 81001; 85025; 87086; 96374; 96375; 99284; J2405

== ENCOUNTER 2017-02-02 15:27 | Emergency (ER) | payer BC ==
[2017-02-02] MEDS ORDERED: NORMAL SALINE 1,000 ML IV ONE ×2 (15:46→17:41)
[2017-02-02] MEDS ORDERED: ONDANSETRON 4 MG TAB.RAPDIS PO ONE (15:50)
[2017-02-02] MEDS ORDERED: ONDANSETRON 4 MG TAB.RAPDIS ONE (15:51)
--- NOTE | 2017-02-02 15:52 | ERNOTE ---
Medical Problem HPI - Narrative Date of Service: 02/02/17 - General Chief Complaint: Nausea/Vomiting Time Seen by Provider: 02/02/17 15:43 Source: patient - Immun/Allergies/Home Medications Immunizations: IMMUNIZATION HX Immunizations Up to Date Yes History of Influenza Vaccine No Hx Pneumococcal Vaccination No Allergies/Adverse Reactions: Allergies infliximab [From Remicade] Adverse Reaction (Severe, Verified 02/02/17 15:41) Anaphylaxis metoclopramide HCl [From Reglan] Adverse Reaction (Intermediate, Verified 15:41) Muscle Pain morphine Adverse Reaction (Intermediate, Verified 02/02/17 15:41) Hives ustekinumab [From Stelara] Adverse Reaction (Intermediate, Verified 02/02/17 15: 41) Headache Home Medications: HOME MEDICATIONS HYDROcodone/ACETAMINOPHEN [Vicodin 5-300 mg Tablet] 1 tab PO Q6H PRN #20 tablet 10/12/15 [Last Taken 06/27/16 18:30] Ibuprofen [Motrin] 800 mg PO TID PRN 06/27/16 [Last Taken 06/27/16 17:00] Levonorgestrel [Mirena] 1 each IY DAILY 06/27/16 [Last Taken Unknown] Ondansetron [Zofran Odt] 4 mg PO Q6H PRN #20 tab 07/31/16 [Last Taken Unknown] Ciprofloxacin HCl [Cipro] 500 mg PO BID #20 tab 01/27/17 [Last Taken Unknown] Phenazopyridine HCl 200 mg PO TID #10 tablet 01/27/17 [Last Taken Unknown] - Patient's Past Medical History Patient History - Medical: Anemia, Chronic Pain, Fibromyalgia, Kidney stone, UTI 'S Patient History - Cardiac/Respiratory: No pertinent hx, Asthma Patient History - Cancer: No Hx of Cancer Patient History - Surgical Procedures: Appendectomy, Cholecystectomy, T & A Patient History - Other: None - Family History Mother Family History - Medical: Diabetes Type 2 Family History - Cardiac/Respiratory: No pertinent hx Father Family History - Cardiac/Respiratory: COPD - Social History Living Situations: home Abuse History: No History of abuse Psych History: No pertinent hx Smoking Status: Never smoker Alcohol Use: rarely Drug Use: none - Immunizations Immunizations Up to Date: Yes Hx Pneumococcal Vaccination: No History of Influenza Vaccine: No Physical Exam - Physical Exam General Appearance: Present: wd/wn, alert, no apparent distress Head Exam: Present: normal inspection, no evidence of injury Ears, Nose, Throat: Present: normal ENT inspection, normal pharynx Neck: Present: normal inspection, nontender Respiratory: Present: no respiratory distress, normal breath sounds, no accessory muscle use, chest nontender, lungs clear Cardiovascular/Chest: Present: regular rate, rhythm, no murmur, normal peripheral pulses Gastrointestinal/Abdominal: Present: normal bowel sounds, nontender, nondistended, soft, no organomegaly Back Exam: Present: normal inspection, normal range of motion, no CVA tenderness , no vertebral tenderness Extremity Exam: Present: normal inspection, non-tender, normal range of motion, no edema Neurological Exam: Present: alert, oriented, normal mood/affect, no motor/ sensory deficits Skin Exam: Present: normal color, warm/dry Lymphatic Exam: Present: no adenopathy ED Progress - Results and Orders Patient's Lab Results:: I have reviewed the patient's lab results. - Vital Signs Patient's Vital Signs:: I have reviewed the patient's vital signs. Vital Signs: Vital Signs 02/02/17 15:36 Temperature 37.7 C H Pulse Rate 118 H Respiratory 16 Rate Blood Pressure 144/92 O2 Sat by Pulse 100 Oximetry - Progress/Reassessment Chief Complaint: Nausea/Vomiting Progress:: Improved Departure Clinical Impression: UTI (urinary tract infection) Qualifiers: Urinary tract infection type: site unspecified Hematuria presence: with hematuria Qualified Code(s): N39.0 - Urinary tract infection, site not specified ; R31.9 - Hematuria, unspecified - Departure Disposition: Home Follow Up Needed Condition: Stable Instructions: Urinalysis Test, Urinary Tract Infection, Adult, [id number] Additional Instructions: Please continue to take antibiotics as prescribed. Missing antibiotic doses can lead to colonization and resistant bacteria in your bladder. I also it would be beneficial for you to follow up with her primary care provider in the next 2-3 days and perhaps a urology referral from your PCP. She may take over- the-counter pain medication as needed. Take medication with food. TAKE MEDICATION PRESCRIBED. COMPLETE ALL PRESCRIPTIONS. Referrals: Melquiades Sims, [Primary Care Provider] -
[2017-02-02 16:32] LABS: Urine Bilirubin Negative (NEGATIVE); Urine Ketone Negative (NEGATIVE); Urine Nitrite Negative (NEGATIVE); Urine Protein Negative (NEGATIVE); Urine Specific Gravity 1.015 SP.GR. (1.005-1.010); Urine Urobilinogen Normal (NORMAL); Urine pH 7.5 pH (5.0-7.0)
[2017-02-02 16:40] LABS: Urine Appearance Slightly Cloudy; Urine Bacteria 1+; Urine Blood 5 /ul (NEGATIVE); Urine Color Yellow; Urine RBC TRACE /hpf (0-5); Urine WBC 0-5 /hpf (0-5); Urine Yeast Few - 1+
[2017-02-02 16:56] LABS: Cocaine Ur Negative (NEGATIVE); Urine Barbiturate Negative (NEGATIVE); Urine Benzodiazepines Negative (NEGATIVE); Urine PCP Negative (NEGATIVE); Urine THC Negative (NEGATIVE)
[2017-02-02 16:57] LABS: Urine Opiates Positive (NEGATIVE)
[2017-02-02] MEDS ORDERED: diphenhydrAMINE HCL 50 MG/ML VIAL IM ONE (18:39)
[2017-02-02] MEDS ORDERED: diphenhydrAMINE HCL 50 MG/ML VIAL ONE ×2 (18:45→18:54)
[2017-02-02] MEDS ORDERED: PROCHLORPERAZINE EDISYLATE 5 MG/ML VIAL IM ONE (18:52)
[2017-02-02] MEDS ORDERED: PROCHLORPERAZINE EDISYLATE 5 MG/ML VIAL ONE (18:53)
[2017-02-02] MEDS ORDERED: PROMETHAZINE HCL 25 MG/ML AMPUL IM ONE (19:11)
[2017-02-02] MEDS ORDERED: PROMETHAZINE HCL 25 MG/ML AMPUL ONE (19:12)
[2017-02-02 19:18] VITALS: BP 105/74
[2017-02-02] MEDS ORDERED: KETOROLAC TROMETHAMINE 60 MG/2 ML VIAL IM ONE ×2 (19:47→19:49)
--- NOTE | 2017-02-02 19:56 | OR ---
Anesthesia Procedure Note - Anesthesia Procedure Note Date of Service: 02/02/17 Narrative: Vital Signs - Last Taken Temp 37.7 C H 02/02/17 15:36 Pulse 99 02/02/17 19:18 Resp 17 02/02/17 19:18 BP 105/74 02/02/17 19:18 Pulse Ox 99 02/02/17 19:18 O2 Oxygen Delivery Method Room Air 02/02/17 19:54 ANESTHESIA PROCEDURE NOTE Date of Procedure: 02/02/2017. Time of procedure: 1929. Performed by: Torsten Lu CRNA Server Programmer: None. Preprocedure diagnosis: Difficult IV access. Post procedure diagnosis: Same. Procedure: Ultrasound guided Peripheral vein IV insertion. Indications: This is a 26-year-old female in need of an IV. Findings: See below. Details of the procedure: Skin over the intended target site was cleansed with alcohol. A 22-gauge IV catheter was inserted into a left antecubital vein under ultrasound guidance. A sterile dressing was applied over the insertion site. The line was then flushed with sterile saline solution. EBL: Minimal. Fluids: N/A. Specimen: N/A. Post procedure condition: The patient tolerated the procedure well. No complications were noted. Thank you for this consultation. Torsten Lu CRNA
== END 2017-02-02 19:57 | disposition home or self-care (01) ==
LOC: ER 15:27
DX: N39.0 Urinary tract infection, site not specified (principal)

== ENCOUNTER 2017-02-25 21:06 | Emergency (ER) | payer BC ==
[2017-02-25] MEDS ORDERED: ONDANSETRON 4 MG TAB.RAPDIS PO ONE ×2 (21:35→22:17)
[2017-02-25] MEDS ORDERED: HYDROcodone/ACETAMINOPHEN 1 EACH TABLET PO ONE (21:36)
--- NOTE | 2017-02-25 21:39 | ERNOTE ---
ER Female HPI Date of Service: 02/25/17 Stated Complaint: UTI POSS KIDNEY STONE Presenting Symptoms: dysuria Time Seen by Provider: 02/25/17 21:29 Immunizations: IMMUNIZATION HX Immunizations Up to Date Yes History of Influenza Vaccine No Hx Pneumococcal Vaccination No Allergies/Adverse Reactions: Allergies infliximab [From Remicade] Adverse Reaction (Severe, Verified 02/25/17 21:22) Anaphylaxis metoclopramide HCl [From Reglan] Adverse Reaction (Intermediate, Verified 21:22) Muscle Pain morphine Adverse Reaction (Intermediate, Verified 02/25/17 21:22) Hives ustekinumab [From Stelara] Adverse Reaction (Intermediate, Verified 02/25/17 21: 22) Headache Home Medications: HOME MEDICATIONS HYDROcodone/ACETAMINOPHEN [Vicodin 5-300 mg Tablet] 1 tab PO Q6H PRN #20 tablet 10/12/15 [Last Taken 06/27/16 18:30] Ibuprofen [Motrin] 800 mg PO TID PRN 06/27/16 [Last Taken 06/27/16 17:00] Levonorgestrel [Mirena] 1 each IY DAILY 06/27/16 [Last Taken Unknown] Ondansetron [Zofran Odt] 4 mg PO Q4H PRN #20 tab 02/25/17 [Last Taken Unknown] Sulfamethoxazole/Trimethoprim [Bactrim] 1 tab PO Q12H 02/25/17 [Last Taken Unknown] metroNIDAZOLE [Flagyl] 500 mg PO Q12H 02/25/17 [Last Taken Unknown] - History of Present Illness Narrative: This is a 26-year-old female who comes to the emergency department complaining of primarily right flank pain and suprapubic pain along with some urinary symptoms of frequency and dysuria and generalized malaise. This been going on for a day and a half or 2 days. The patient was seen earlier today in the walk- in clinic and had a diagnosis of a urinary tract infection and bacterial vaginosis. She was placed on metronidazole and Bactrim DS, and sent home. She was given instruction to return if she had pain out of control. The patient reports that this evening she started having nausea and vomiting. She can't keep down anything other than a couple of sips of fluid. The patient says that she started having more suprapubic and right flank pain so she came to the ER. Of importance the patient has ankylosing spondylitis. She takes hydrocodone as needed for this pain. She has been unable to keep it down due to the nausea. She has a CAT scan scheduled for tomorrow. She denies any other complaints. No fever. Review of Systems - Review of Systems Constitutional: Present: malaise EYE: Present: no symptoms reported ENT: Present: no symptoms reported Respiratory: Present: no symptoms reported Cardiology: Present: no symptoms reported Gastrointestinal/Abdominal: Present: nausea, vomiting Genitourinary: Present: frequency, dysuria Musculoskeletal: Present: no symptoms reported Skin: Present: no symptoms reported Neurological: Present: no symptoms reported Endocrine: Present: no symptoms reported Hematologic/Lymphatic: Present: no symptoms reported Psych: Present: no symptoms reported All Other Systems: All systems neg except as marked - Patient's Past Medical History Patient History - Medical: Anemia, Chronic Pain, Fibromyalgia, Kidney stone, UTI 'S Patient History - Cardiac/Respiratory: No pertinent hx, Asthma Patient History - Cancer: No Hx of Cancer Patient History - Surgical Procedures: Appendectomy, Cholecystectomy, T & A Patient History - Other: None LMP (females 10-50): mirena - Family History Mother Family History - Medical: Diabetes Type 2 Family History - Cardiac/Respiratory: No pertinent hx Father Family History - Cardiac/Respiratory: COPD - Social History Living Situations: home Abuse History: No History of abuse Psych History: No pertinent hx Smoking Status: Never smoker Alcohol Use: none Drug Use: none - Immunizations Immunizations Up to Date: Yes Hx Pneumococcal Vaccination: No History of Influenza Vaccine: No Physical Exam - Physical Exam General Appearance: Present: wd/wn, alert, no apparent distress Head Exam: Present: normal inspection, no evidence of injury Eye Exam: Normal inspection: bilateral, PERRL: bilateral, EOMI: bilateral Ears, Nose, Throat: Present: normal ENT inspection, normal pharynx Neck: Present: normal inspection, nontender Respiratory: Present: no respiratory distress, normal breath sounds, no accessory muscle use, lungs clear Cardiovascular/Chest: Present: regular rate, rhythm, no murmur, normal peripheral pulses Gastrointestinal/Abdominal: Present: normal bowel sounds, nontender, nondistended, soft, no organomegaly Back Exam: Present: other - patient has right CVA tenderness Extremity Exam: Present: normal inspection, non-tender, normal range of motion, no edema Neurological Exam: Present: alert, oriented, normal mood/affect, no motor/ sensory deficits Skin Exam: Present: normal color, warm/dry Lymphatic Exam: Present: no adenopathy ED Progress - Results and Orders Patient's Lab Results:: I have reviewed the patient's lab results. - Vital Signs Patient's Vital Signs:: I have reviewed the patient's vital signs. Vital Signs: Vital Signs 02/25/17 21:16 Temperature 36.7 C Pulse Rate 118 H Respiratory 18 Rate Blood Pressure 132/54 O2 Sat by Pulse 99 Oximetry - CT/Ultrasound CT/Ultrasound Narrative: No signs of intrarenal or ureteral calculi - Progress/Reassessment Chief Complaint: Genitourinary Problem Departure Clinical Impression: Flank pain, Vomiting - Departure Disposition: Home self-care Condition: Good Instructions: Nausea, Adult Additional Instructions: As we discussed her urinalysis really doesn't show any infection. There is a tiny amount of blood but not around lot of red blood cells so I do not believe he had a kidney stone. Nevertheless we did obtain a CAT scan. I do not see any signs of a kidney stone on the CAT scan either. I am not certain why you're having the symptoms that you are. I want you to take the prescribed Zofran to help with nausea and vomiting. He can take one every 4 hours as needed. They should also allow you to keep down the pain medicine which were prescribed for you're ankylosing spondylitis. You do not need to have a CAT scan done tomorrow. Call your family doctor and set up a follow-up appointment. Certainly if he developed blood in her stool blood in her urine which you can see with the naked eye, vomiting out of control to the point where he is unable to keep down any fluids for more than 24 hours or any other concerning symptoms he should return to the ER Referrals: Melquiades Sims DO [Primary Care Provider] - Prescriptions: Ondansetron [Zofran Odt] 4 mg PO Q4H PRN #20 tab PRN Reason: Nausea
[2017-02-25] MEDS ORDERED: HYDROcodone/ACETAMINOPHEN 1 EACH TABLET ONE (21:40)
[2017-02-25] MEDS ORDERED: ONDANSETRON 4 MG TAB.RAPDIS ONE (21:41)
[2017-02-25 21:55] LABS: Urine Bilirubin Negative (NEGATIVE); Urine Blood 25 /ul (NEGATIVE); Urine Ketone 50 mg/dL (NEGATIVE); Urine Nitrite Negative (NEGATIVE); Urine Protein Negative (NEGATIVE); Urine Specific Gravity 1.025 SP.GR. (1.005-1.010); Urine Urobilinogen Normal (NORMAL); Urine pH 6.5 pH (5.0-7.0)
[2017-02-25 22:05] LABS: Urine Appearance Slightly Cloudy; Urine Bacteria TRACE; Urine Color Yellow; Urine RBC 0-5 /hpf (0-5); Urine WBC 0-5 /hpf (0-5)
[2017-02-25 22:07] LABS: Cocaine Ur Negative (NEGATIVE); Urine Barbiturate Negative (NEGATIVE); Urine Benzodiazepines Negative (NEGATIVE); Urine PCP Negative (NEGATIVE); Urine THC Negative (NEGATIVE)
[2017-02-25 22:16] LABS: Urine Opiates Positive (NEGATIVE)
[2017-02-25] MEDS ORDERED: ONDANSETRON HCL 8 MG TABLET ONE (22:20)
[2017-02-25 22:28] VITALS: BP 120/66
== END 2017-02-25 22:28 | disposition home or self-care (01) ==
LOC: ER 21:06
DX: R10.9 Unspecified abdominal pain (principal); R11.10 Vomiting, unspecified; G89.29 Other chronic pain

== ENCOUNTER 2017-05-14 09:10 | Emergency (ER) | payer BC ==
[2017-05-14] MEDS ORDERED: ONDANSETRON HCL/PF 2 MG/ML VIAL IV ONE (10:24)
[2017-05-14] MEDS ORDERED: KETOROLAC TROMETHAMINE 30 MG/ML VIAL IV ONE (10:24)
--- NOTE | 2017-05-14 10:30 | ERNOTE ---
Abdominal HPI - Narrative Date of Service: 05/14/17 - General Chief Complaint: Abdominal Pain Time Seen by Provider: 05/14/17 10:14 Source: patient, RN notes reviewed Exam Limitations: no limitations - Immun/Allergies/Home Medications Immunizatons: IMMUNIZATION HX Immunizations Up to Date Yes History of Influenza Vaccine No Hx Pneumococcal Vaccination No Allergies/Adverse Reactions: Allergies infliximab [From Remicade] Adverse Reaction (Severe, Verified 05/14/17 09:34) Anaphylaxis metoclopramide HCl [From Reglan] Adverse Reaction (Intermediate, Verified 09:34) Muscle Pain morphine Adverse Reaction (Intermediate, Verified 05/14/17 09:34) Hives ustekinumab [From Stelara] Adverse Reaction (Intermediate, Verified 05/14/17 09: 34) Headache Home Medications: HOME MEDICATIONS HYDROcodone/ACETAMINOPHEN [Vicodin 5-300 mg Tablet] 1 tab PO Q6H PRN #20 tablet 10/12/15 [Last Taken 06/27/16 18:30] Ibuprofen [Motrin] 800 mg PO TID PRN 06/27/16 [Last Taken 06/27/16 17:00] Levonorgestrel [Mirena] 1 each IY DAILY 06/27/16 [Last Taken Unknown] Nitrofurantoin/Nitrofuran Mac [Macrobid] 100 mg PO Q12H #14 cap 05/14/17 [Last Taken Unknown] Phenazopyridine HCl [Pyridium] 200 mg PO Q8H #6 tablet 05/14/17 [Last Taken Unknown] - History of Present Illness Narrative: 26 year old female presents with low abdominal pain that began a few days ago during intercourse, but became much worse last night. She has a mirena and has been having irregular spotting. She also reports nausea and vomiting once this morning. She also had a bowel movement this morning with no change in her pain. Date (Duration): 05/13/17 Time (Timing): 21:00 Timing: constant, getting worse Quality: severe Prior Abdominal Problems: Present: similar symptoms - ovarian cyst Review of Systems - Review of Systems Constitutional: Absent: fever, chills EYE: Present: no symptoms reported ENT: Present: no symptoms reported Respiratory: Present: no symptoms reported Cardiology: Present: no symptoms reported Gastrointestinal/Abdominal: Present: nausea, vomiting, abdominal pain. Absent: diarrhea, constipation Genitourinary: Absent: frequency, dysuria, hematuria, decreased urinary output Musculoskeletal: Absent: back pain, muscle pain Skin: Absent: rash, lesions Neurological: Absent: headache, dizziness/light-headedness Endocrine: Present: no symptoms reported Hematologic/Lymphatic: Present: no symptoms reported Psych: Present: no symptoms reported - Patient's Past Medical History Patient History - Medical: Anemia, Chronic Pain, Fibromyalgia, Kidney stone, UTI 'S Patient History - Cardiac/Respiratory: Asthma Patient History - Cancer: No Hx of Cancer Patient History - Surgical Procedures: Appendectomy, Cholecystectomy, T & A Patient History - Other: None LMP (females 10-50): mirena , but having spotting - Family History Mother Family History - Medical: Diabetes Type 2 Family History - Cardiac/Respiratory: No pertinent hx Father Family History - Cardiac/Respiratory: COPD - Social History Living Situations: spouse Abuse History: No History of abuse Psych History: No pertinent hx Smoking Status: Never smoker Alcohol Use: rarely Drug Use: none - Immunizations Immunizations Up to Date: Yes Hx Pneumococcal Vaccination: No History of Influenza Vaccine: No Physical Exam - Physical Exam General Appearance: Present: alert, mild distress, obese Head Exam: Present: normal inspection Respiratory: Present: no respiratory distress, normal breath sounds, no accessory muscle use, lungs clear Cardiovascular/Chest: Present: regular rate, rhythm, no murmur Gastrointestinal/Abdominal: Present: normal bowel sounds, nondistended, soft, tenderness - suprapubic Pelvic Exam: Present: deferred Back Exam: Present: normal inspection, normal range of motion, no CVA tenderness Extremity Exam: Present: normal inspection, normal range of motion, no edema Neurological Exam: Present: alert, oriented, normal mood/affect, no motor/ sensory deficits Skin Exam: Present: normal color, warm/dry ED Progress - Results and Orders Patient's Lab Results:: I have reviewed the patient's lab results. - Vital Signs Patient's Vital Signs:: I have reviewed the patient's vital signs. Vital Signs: Vital Signs 05/14/17 05/14/17 09:28 10:15 Temperature 36.9 C Pulse Rate 95 105 H Respiratory 18 16 Rate Blood Pressure 122/72 126/74 O2 Sat by Pulse 99 99 Oximetry - CT/Ultrasound CT/Ultrasound Narrative: Pelvic US demonstrates no acute findings - Progress/Reassessment Chief Complaint: Abdominal Pain Progress:: Improved Departure Clinical Impression: UTI (urinary tract infection) Qualifiers: Urinary tract infection type: acute cystitis Hematuria presence: without hematuria Qualified Code(s): N30.00 - Acute cystitis without hematuria - Departure Disposition: Home Follow Up Needed Condition: Stable Instructions: Urinary Tract Infection, Adult, [id number] Additional Instructions: Push fluids Return to ER if symptoms worsen, otherwise recheck your urine with your PCP after finishing the antibiotic See gynecology as scheduled Prescriptions: Nitrofurantoin/Nitrofuran Mac [Macrobid] 100 mg PO Q12H #14 cap Phenazopyridine HCl [Pyridium] 200 mg PO Q8H #6 tablet
[2017-05-14] MEDS ORDERED: KETOROLAC TROMETHAMINE 30 MG/ML VIAL ONE (10:33)
[2017-05-14] MEDS ORDERED: ONDANSETRON HCL/PF 2 MG/ML VIAL ONE (10:33)
[2017-05-14 10:40] LABS: Hematocrit 41.5 % (37.0-47.0); Hemoglobin 13.8 gm/dL (12.5-16.0); Mean Cell Volume 85.9 fl (78-100); Mean Corpuscular Hemoglobin 28.6 pg (27-31); Mean Corpuscular Hgb Conc 33.3 g/dl (32-36); Mean Platelet Volume 9.4 fl (6.0-9.5); Neutrophil # 4.8 K/mm3 (1.3-6.0); Neutrophil % 66.3 % (42-75.0); Platelet Count 279 K/mm3 (150-450); Red Blood Count 4.83 M/mm3 (4.2-5.4); Red Cell Distribution Width 13.2 % (11.5-14.0); Urine Bilirubin Negative (NEGATIVE); Urine Blood 50 /ul (NEGATIVE); Urine Ketone Negative (NEGATIVE); Urine Nitrite Negative (NEGATIVE); Urine Protein Negative (NEGATIVE); Urine Urobilinogen Normal (NORMAL); Urine pH 6.5 pH (5.0-7.0); White Blood Count 7.3 K/mm3 (4.0-10.5)
[2017-05-14 10:52] LABS: Albumin * 4.1 gm/dl (3.4-5.0); Anion Gap 12.9 mmol/L (6.8-13.8); BUN/Creatinine Ratio 13.4 (9.0-21.6); Bilirubin, Total 0.4 mg/dL (0.0-1.1); Ca. Corrected For Albumin 8.8 mg/dL (8.4-10.2); Calcium * 9.2 mg/dL (7.9-10.9); Carbon Dioxide 26.9 mmol/L (24-32.6); Potassium 3.8 mmol/L (3.4-4.6); Total Protein 8.5 gm/dL (6.2-8.2)
[2017-05-14 10:55] LABS: Urine Appearance Clear; Urine Bacteria TRACE; Urine Color Yellow
[2017-05-14] MEDS ORDERED: KETOROLAC TROMETHAMINE 60 MG/2 ML VIAL IM ONE (11:25)
[2017-05-14] MEDS ORDERED: ONDANSETRON 4 MG TAB.RAPDIS ONE (11:25)
[2017-05-14] MEDS: ONDANSETRON 4 MG TAB.RAPDIS PO ONE (11:27)
[2017-05-14] MEDS: KETOROLAC TROMETHAMINE 60 MG/2 ML VIAL IM ONE (11:28)
[2017-05-14 12:51] VITALS: BP 141/78
[2017-05-14] MEDS ORDERED: NITROFURANTOIN/NITROFURAN MAC 100 MG CAPSULE ONE (13:19)
[2017-05-14] MEDS ORDERED: PROMETHAZINE HCL 50 MG/ML AMPUL IM ONE (13:19)
[2017-05-14] MEDS ORDERED: NALBUPHINE HCL 20 MG/ML AMPUL ONE (13:19)
[2017-05-14] MEDS ORDERED: PHENAZOPYRIDINE HCL 100 MG TABLET ONE (13:19)
[2017-05-14] MEDS: NITROFURANTOIN/NITROFURAN MAC 100 MG CAPSULE PO ONE (13:25)
[2017-05-14] MEDS: PHENAZOPYRIDINE HCL 100 MG TABLET PO ONE (13:25)
[2017-05-14] MEDS: NALBUPHINE HCL 20 MG/ML AMPUL IM ONE (13:25)
[2017-05-14] MEDS: PROMETHAZINE HCL 50 MG/ML AMPUL IM ONE (13:25)
== END 2017-05-14 13:35 | disposition home or self-care (01) ==
LOC: ER 09:10
DX: N30.00 Acute cystitis without hematuria (principal); Z87.440 Personal history of urinary (tract) infections; Z87.442 Personal history of urinary calculi

== ENCOUNTER 2017-06-11 05:14 | Emergency (ER) | payer BC ==
[2017-06-11] MEDS ORDERED: ONDANSETRON HCL/PF 2 MG/ML VIAL IV ONE (05:35)
[2017-06-11] MEDS ORDERED: KETOROLAC TROMETHAMINE 30 MG/ML VIAL IV ONE (05:36)
[2017-06-11] MEDS ORDERED: ONDANSETRON HCL/PF 2 MG/ML VIAL ONE (05:37)
[2017-06-11] MEDS ORDERED: KETOROLAC TROMETHAMINE 30 MG/ML VIAL ONE (05:37)
--- NOTE | 2017-06-11 05:47 | ERNOTE ---
ER Female HPI Stated Complaint: ABD PAIN Presenting Symptoms: pelvic pain Time Seen by Provider: 06/11/17 05:30 Source: patient Exam Limitations: no limitations Immunizations: IMMUNIZATION HX Immunizations Up to Date Yes History of Influenza Vaccine No Hx Pneumococcal Vaccination No Allergies/Adverse Reactions: Allergies infliximab [From Remicade] Adverse Reaction (Severe, Verified 06/11/17 05:23) Anaphylaxis metoclopramide HCl [From Reglan] Adverse Reaction (Intermediate, Verified 05:23) Muscle Pain morphine Adverse Reaction (Intermediate, Verified 06/11/17 05:23) Hives ustekinumab [From Stelara] Adverse Reaction (Intermediate, Verified 06/11/17 05: 23) Headache Home Medications: HOME MEDICATIONS HYDROcodone/ACETAMINOPHEN [Vicodin 5-300 mg Tablet] 1 tab PO Q6H PRN #20 tablet 10/12/15 [Last Taken 06/11/17 02:00] Ibuprofen [Motrin] 800 mg PO TID PRN 06/27/16 [Last Taken 06/27/16 17:00] Levonorgestrel [Mirena] 1 each IY DAILY 06/27/16 [Last Taken Unknown] HYDROcodone/ACETAMINOPHEN [[place] 5-325 Tablet] 1 tab PO Q4H PRN #10 tab [Last Taken Unknown] Norethindrone-E.estradiol-Iron [[place]cca Fe 1.5-30 Tablet] 1 each PO DAILY [Last Taken Unknown] Cephalexin Monohydrate [Keflex] 500 mg PO Q8H #21 capsule 06/14/17 [Last Taken Unknown] Ondansetron HCl [Zofran] 1 - 2 mg PO Q8H PRN #30 tab 06/14/17 [Last Taken Unknown] Tamsulosin HCl [Flomax] 0.4 mg PO DAILY@1800 #15 cap 06/14/17 [Last Taken Unknown] - History of Present Illness Narrative: Pt was awakened by right lower quad pain this morning. She was recently diagnosed with a hemorrhagic ovarian cyst. This pain is more intense and now a burning nature Timing: Present: getting worse Quality: Present: moderate, severe, burning Onset Location: Present: RLQ, groin Radiation: Present: none Activities at Onset: Present: sleep Prior Abdominal Problems: Present: other - ovarian cyst Modifying Factors - (Improves): Present: other - position Modifying Factors - (Worsens): Present: movement Associated Symptoms: Present: nausea. Absent: fever/chills Prior Treatment: Present: recently seen Review of Systems - Review of Systems Constitutional: Absent: recent illness, fever, chills EYE: Present: no symptoms reported ENT: Present: no symptoms reported Respiratory: Absent: shortness of breath Gastrointestinal/Abdominal: Present: nausea, vomiting - x1 tonight Genitourinary: Absent: frequency, pain, dysuria Musculoskeletal: Absent: back pain Skin: Present: no symptoms reported Neurological: Absent: headache, dizziness/light-headedness Endocrine: Absent: excessive sweating, flushing Hematologic/Lymphatic: Present: no symptoms reported Psych: Present: no symptoms reported - Patient's Past Medical History Patient History - Medical: Anemia, Chronic Pain, Fibromyalgia, Kidney stone, UTI 'S, Other Patient History - Cardiac/Respiratory: Asthma Patient History - Cancer: No Hx of Cancer Patient History - Surgical Procedures: Appendectomy, Cholecystectomy, T & A Patient History - Other: None LMP (females 10-50): mirena - Family History Mother Family History - Medical: Diabetes Type 2 Family History - Cardiac/Respiratory: No pertinent hx Father Family History - Cardiac/Respiratory: COPD - Social History Living Situations: home Abuse History: No History of abuse Psych History: No pertinent hx Smoking Status: Never smoker Alcohol Use: rarely Drug Use: none - Immunizations Immunizations Up to Date: Yes Hx Pneumococcal Vaccination: No History of Influenza Vaccine: No Physical Exam - Physical Exam General Appearance: Present: wd/wn, alert, mild distress Head Exam: Present: normal inspection, no evidence of injury Neck: Present: normal inspection, nontender Respiratory: Present: no respiratory distress, normal breath sounds, no accessory muscle use, lungs clear Cardiovascular/Chest: Present: regular rate, rhythm, no murmur, normal peripheral pulses Gastrointestinal/Abdominal: Present: normal bowel sounds, tenderness - RLQ. Absent: distended, guarding, rebound Back Exam: Present: normal inspection, normal range of motion, no CVA tenderness Extremity Exam: Present: normal inspection, normal range of motion, no edema Neurological Exam: Present: alert, oriented, normal mood/affect Skin Exam: Present: normal color, warm/dry Lymphatic Exam: Present: no adenopathy ED Progress - Results and Orders Patient's Lab Results:: I have reviewed the patient's lab results. Results and Orders: Laboratory Tests 06/11/17 06/11/17 06/11/17 05:45 05:45 05:45 WBC 8.3 Hgb 12.7 Hct 38.2 Plt Count 267 Sodium 140 Potassium 3.8 Chloride 104 Carbon Dioxide 27.3 BUN 10 Creatinine 0.74 BUN/Creatinine Ratio 13.5 Random Glucose 98 Calcium 9.3 Total Bilirubin 0.2 AST 14 ALT 27 Alkaline Phosphatase 63 Total Protein 8.0 Albumin 3.8 Serum HCG, Qual Negative Urine Color Urine Appearance Urine pH Ur Specific [place] Urine Protein Urine Glucose (UA) Urine Ketones Urine Blood Urine Nitrate Urine Bilirubin Urine Ictotest Urine Urobilinogen Ur Leukocyte Esterase Urine RBC Urine WBC Ur Epithelial Cells Urine Bacteria Urine Culture Comments 06/11/17 06:28 WBC Hgb Hct Plt Count Sodium Potassium Chloride Carbon Dioxide BUN Creatinine BUN/Creatinine Ratio Random Glucose Calcium Total Bilirubin AST ALT Alkaline Phosphatase Total Protein Albumin Serum HCG, Qual Urine Color Dark yellow Urine Appearance Slightly cloudy Urine pH 6.0 Ur Specific [place] >=1.030 Urine Protein Negative Urine Glucose (UA) Negative Urine Ketones 5 Urine Blood 25 H Urine Nitrate Negative Urine Bilirubin 1 H Urine Ictotest Negative Urine Urobilinogen Normal Ur Leukocyte Esterase Negative Urine RBC 5-10 H Urine WBC Trace H Ur Epithelial Cells 5-10 H Urine Bacteria Trace Urine Culture Comments No culture indicated - Vital Signs Patient's Vital Signs:: I have reviewed the patient's vital signs. Vital Signs: Vital Signs 06/11/17 06/11/17 05:18 05:29 Temperature 36.7 C 36.7 C Pulse Rate 111 H 111 H Respiratory 18 18 Rate Blood Pressure 141/95 141/95 O2 Sat by Pulse 99 99 Oximetry - CT/Ultrasound CT/Ultrasound Narrative: CT abd/pelvis without contrast: IMPRESSION: 1. LIMITED UNENHANCED STUDY. 2. MULTIPLE NONOBSTRUCTING RENAL CALCULI INVOLVING THE RIGHT KIDNEY AND PROBABLE TINY NONOBSTRUCTING CALCULI WITHIN THE LEFT KIDNEY. NO EVIDENCE FOR HYDRONEPHROSIS OR DEFINABLE CALCULUS ALONG THE PATH OF URETERS. 3. DECOMPRESSED URINARY BLADDER WHICH IS GROSSLY NORMAL. 4. STATUS POST CHOLECYSTECTOMY. 5. QUESTIONAL SMALL AMOUNT OF INFLAMMATION ADJACENT TO THE PANCREAS , WHICH MAY REFLECT A LOW- GRADE PANCREATITIS. 6. APPENDIX NOT IDENTIFIED; THE PATIENT GIVES HISTORY OF APPENDECTOMY. 7. INTRAUTERINE DEVICE. 8. CLINICAL CORRELATION REQUIRED. Electronically signed by Alessandro Haney M.D.. - Progress/Reassessment Chief Complaint: Genitourinary Problem Progress Note-Subjective: 06/11/17 07:41 Pt still having pain. discussed microscopic hematuria and evaluating with CT. Pt agrees with plan. Departure Clinical Impression: Abdominal pain Qualifiers: Abdominal location: right lower quadrant Qualified Code(s): R10.31 - Right lower quadrant pain - Departure Disposition: Home Follow Up Needed Condition: Good Instructions: Abdominal Pain, Adult, [id number] Additional Instructions: folllow up with gynecology for further evaluation. Return to ER as needed. Referrals: Melquiades Sims DO [Primary Care Provider] - Prescriptions: HYDROcodone/ACETAMINOPHEN [[place] 5-325 Tablet] 1 tab PO Q4H PRN #10 tab PRN Reason: Pain
[2017-06-11 06:16] LABS: Hematocrit 38.2 % (37.0-47.0); Hemoglobin 12.7 gm/dL (12.5-16.0); Mean Cell Volume 86.6 fl (78-100); Mean Corpuscular Hemoglobin 28.8 pg (27-31); Mean Corpuscular Hgb Conc 33.2 g/dl (32-36); Mean Platelet Volume 9.7 fl (6.0-9.5); Neutrophil # 4.4 K/mm3 (1.3-6.0); Neutrophil % 53.5 % (42-75.0); Platelet Count 267 K/mm3 (150-450); Red Blood Count 4.41 M/mm3 (4.2-5.4); Red Cell Distribution Width 13.1 % (11.5-14.0); White Blood Count 8.3 K/mm3 (4.0-10.5)
[2017-06-11 06:27] LABS: Albumin * 3.8 gm/dl (3.4-5.0); Anion Gap 12.5 mmol/L (6.8-13.8); BUN/Creatinine Ratio 13.5 (9.0-21.6); Bilirubin, Total 0.2 mg/dL (0.0-1.1); Ca. Corrected For Albumin 9.1 mg/dL (8.4-10.2); Calcium * 9.3 mg/dL (7.9-10.9); Carbon Dioxide 27.3 mmol/L (24-32.6); Potassium 3.8 mmol/L (3.4-4.6)
[2017-06-11 06:34] LABS: Urine Bilirubin 1 mg/dl (NEGATIVE); Urine Blood 25 /ul (NEGATIVE); Urine Ketone 5 mg/dL (NEGATIVE); Urine Nitrite Negative (NEGATIVE); Urine Protein Negative (NEGATIVE); Urine Specific Gravity >=1.030 SP.GR. (1.005-1.010); Urine Urobilinogen Normal (NORMAL)
[2017-06-11 06:42] LABS: Urine Appearance Slightly Cloudy; Urine Bacteria TRACE; Urine Color Dark Yellow; Urine WBC TRACE /hpf (0-5)
[2017-06-11] MEDS ORDERED: NALBUPHINE HCL 20 MG/ML AMPUL IV ONE (07:31)
[2017-06-11] MEDS ORDERED: NALBUPHINE HCL 20 MG/ML AMPUL ONE (08:06)
[2017-06-11 11:39] VITALS: BP 128/74
== END 2017-06-11 09:15 | disposition home or self-care (01) ==
LOC: ER 05:14
DX: R10.31 Right lower quadrant pain (principal); Z87.440 Personal history of urinary (tract) infections; Z87.442 Personal history of urinary calculi; D64.9 Anemia, unspecified
CPT/HCPCS: 36415; 74176; 80053; 81001; 84703; 85025; 96374; 96375; 99284; J2405

== ENCOUNTER 2017-06-13 22:20 | Emergency (ER) | payer BC ==
[2017-06-13] MEDS ORDERED: ONDANSETRON 4 MG TAB.RAPDIS PO ONE (22:37)
[2017-06-13] MEDS ORDERED: ONDANSETRON 4 MG TAB.RAPDIS ONE (22:38)
[2017-06-13] MEDS ORDERED: diphenhydrAMINE HCL 50 MG/ML VIAL IV ONE (22:47)
[2017-06-13] MEDS ORDERED: KETOROLAC TROMETHAMINE 30 MG/ML VIAL IV ONE (22:50)
[2017-06-13] MEDS ORDERED: PROMETHAZINE HCL 25 MG/ML AMPUL IM ONE (22:50)
[2017-06-13] MEDS ORDERED: KETOROLAC TROMETHAMINE 30 MG/ML VIAL ONE (22:54)
[2017-06-13] MEDS ORDERED: diphenhydrAMINE HCL 50 MG/ML VIAL ONE (22:54)
[2017-06-13] MEDS ORDERED: PROMETHAZINE HCL 25 MG/ML AMPUL ONE (22:55)
[2017-06-13] MEDS ORDERED: NORMAL SALINE 1,000 ML IV ONE (23:11)
[2017-06-13 23:21] LABS: Hematocrit 36.4 % (37.0-47.0); Hemoglobin 12.2 gm/dL (12.5-16.0); Mean Cell Volume 85.6 fl (78-100); Mean Corpuscular Hemoglobin 28.7 pg (27-31); Mean Corpuscular Hgb Conc 33.5 g/dl (32-36); Mean Platelet Volume 9.6 fl (6.0-9.5); Neutrophil # 7.2 K/mm3 (1.3-6.0); Neutrophil % 86.3 % (42-75.0); Platelet Count 195 K/mm3 (150-450); Red Blood Count 4.25 M/mm3 (4.2-5.4); Red Cell Distribution Width 13.1 % (11.5-14.0); White Blood Count 8.4 K/mm3 (4.0-10.5)
[2017-06-13] MEDS ORDERED: HYDROmorphone HCL 1 MG/ML DISP.SYRIN IV ONE (23:29)
[2017-06-13] MEDS ORDERED: HYDROmorphone HCL 2 MG/ML VIAL ONE (23:32)
--- NOTE | 2017-06-13 23:33 | ERNOTE ---
Medical Problem HPI - Narrative Date of Service: 06/13/17 - General Chief Complaint: Nausea/Vomiting Time Seen by Provider: 06/13/17 22:36 Source: patient Exam Limitations: no limitations - Immun/Allergies/Home Medications Immunizations: IMMUNIZATION HX Immunizations Up to Date Yes History of Influenza Vaccine No Hx Pneumococcal Vaccination No Allergies/Adverse Reactions: Allergies infliximab [From Remicade] Adverse Reaction (Severe, Verified 06/11/17 05:23) Anaphylaxis metoclopramide HCl [From Reglan] Adverse Reaction (Intermediate, Verified 05:23) Muscle Pain morphine Adverse Reaction (Intermediate, Verified 06/11/17 05:23) Hives ustekinumab [From Stelara] Adverse Reaction (Intermediate, Verified 06/11/17 05: 23) Headache Home Medications: HOME MEDICATIONS HYDROcodone/ACETAMINOPHEN [Vicodin 5-300 mg Tablet] 1 tab PO Q6H PRN #20 tablet 10/12/15 [Last Taken 06/11/17 02:00] Ibuprofen [Motrin] 800 mg PO TID PRN 06/27/16 [Last Taken 06/27/16 17:00] Levonorgestrel [Mirena] 1 each IY DAILY 06/27/16 [Last Taken Unknown] HYDROcodone/ACETAMINOPHEN [[place] 5-325 Tablet] 1 tab PO Q4H PRN #10 tab [Last Taken Unknown] Norethindrone-E.estradiol-Iron [Becca Fe 1.5-30 Tablet] 1 each PO DAILY [Last Taken Unknown] Cephalexin Monohydrate [Keflex] 500 mg PO Q8H #21 capsule 06/14/17 [Last Taken Unknown] Ondansetron HCl [Zofran] 1 - 2 mg PO Q8H PRN #30 tab 06/14/17 [Last Taken Unknown] Tamsulosin HCl [Flomax] 0.4 mg PO DAILY@1800 #15 cap 06/14/17 [Last Taken Unknown] - History of Present History Narrative: 26 year old that had a sudden onset of N/V then right flank pain. Known to have multiple kidney stones in the right kidney and has has had lithotripsy. The pain and vomiting are characteristic for other incidences of kidney stones. Denies any fevers or chills. There have been multiple urine cultures that did not show any bacterial growth. CT scan done on 06/11/2017 showed a nonobstructing renal calculi involving the right kidney; in the left kidney there is the suggestion of several small non-obstructing renal calculi. History of headaches, back pain, psoriasis, suicidal attempts, ankylosing spondylitis, kidney stone, anemia psoriasis. Timing: constant Severity: severe Modifying Factors - (Improves): Present: other - nothing Modifying Factors - (Worsens): Present: other - nothing Review of Systems - Review of Systems Constitutional: Present: no symptoms reported EYE: Present: no symptoms reported ENT: Present: no symptoms reported Respiratory: Present: no symptoms reported Cardiology: Present: no symptoms reported Gastrointestinal/Abdominal: Present: nausea, vomiting Genitourinary: Present: pain Musculoskeletal: Present: no symptoms reported Skin: Present: no symptoms reported Neurological: Present: no symptoms reported Endocrine: Present: no symptoms reported Hematologic/Lymphatic: Present: no symptoms reported Psych: Present: no symptoms reported - Patient's Past Medical History Patient History - Medical: Anemia, Chronic Pain, Fibromyalgia, Kidney stone, UTI 'S, Other Patient History - Cardiac/Respiratory: Asthma Patient History - Cancer: No Hx of Cancer Patient History - Surgical Procedures: Appendectomy, Cholecystectomy, T & A Patient History - Other: None LMP (females 10-50): other - Family History Mother Family History - Medical: Diabetes Type 2 Family History - Cardiac/Respiratory: No pertinent hx Father Family History - Cardiac/Respiratory: COPD - Social History Living Situations: home Abuse History: No History of abuse Psych History: No pertinent hx Smoking Status: Never smoker Have you smoked in the past 12 months: No Do you dip or chew tobacco: No Alcohol Use: rarely Drug Use: none - Immunizations Immunizations Up to Date: Yes Hx Pneumococcal Vaccination: No History of Influenza Vaccine: No Physical Exam - Physical Exam General Appearance: Present: moderate distress Head Exam: Present: normal inspection Eye Exam: Normal inspection: bilateral, PERRL: bilateral, EOMI: bilateral Ears, Nose, Throat: Present: normal ENT inspection Neck: Present: normal inspection Respiratory: Present: no respiratory distress Cardiovascular/Chest: Present: regular rate, rhythm Gastrointestinal/Abdominal: Present: nontender Back Exam: Present: CVA tenderness (R) Extremity Exam: Present: normal inspection Neurological Exam: Present: alert, oriented, normal mood/affect, health insurance assessor II-XII nml as tested Skin Exam: Present: normal color ED Progress - Vital Signs Vital Signs: Vital Signs 06/13/17 22:24 Temperature 38.6 C H Pulse Rate 134 H Respiratory 16 Rate Blood Pressure 109/75 O2 Sat by Pulse 100 Oximetry - Progress/Reassessment Chief Complaint: Nausea/Vomiting Progress:: Improved Progress Note-Subjective: 06/14/17 00:56 The patient's nausea is completely resolved, but continues to have persistent moderate pain. Given another half milligram of Dilaudid in addition to 25 mg of Benadryl IV. She has an appointment scheduled with the urologist on of this week. Since that she had a CAT scan just a few days ago there is no need to repeat another CAT scan, in light of normal renal function. The UA did show 2+ bacteria, however there were no nitrates or leukocyte esterase. She is at risk for complications since there are renal stones and there may be an early urinary tract infection. The patient was given 500 mg Keflex by mouth. 06/14/17 00:58 06/14/17 01:03 Departure Clinical Impression: Renal colic on right side - Departure Disposition: Home self-care Condition: Fair Instructions: Renal Colic, [id number] Print Language: Bulgarian Additional Instructions: If the pain persists in spite of the medications return to the ED or contact the urologist for a possible earlier appointment. Referrals: Melquiades Sims DO [Primary Care Provider] - Prescriptions: Cephalexin Monohydrate [Keflex] 500 mg PO Q8H #21 capsule Ondansetron HCl [Zofran] 1 - 2 mg PO Q8H PRN #30 tab PRN Reason: Nausea Tamsulosin HCl [Flomax] 0.4 mg PO DAILY@1800 #15 cap
[2017-06-13 23:35] LABS: Albumin * 3.9 gm/dl (3.4-5.0); Anion Gap 14.7 mmol/L (6.8-13.8); BUN/Creatinine Ratio 10.3 (9.0-21.6); Bilirubin, Total 0.4 mg/dL (0.0-1.1); Ca. Corrected For Albumin 8.6 mg/dL (8.4-10.2); Calcium * 8.8 mg/dL (7.9-10.9); Carbon Dioxide 23.6 mmol/L (24-32.6); Potassium 3.3 mmol/L (3.4-4.6)
[2017-06-13] MEDS ORDERED: ACETAMINOPHEN 500 MG TABLET PO ONE (23:59)
[2017-06-14 00:08] LABS: Urine Bilirubin Negative (NEGATIVE); Urine Blood 50 /ul (NEGATIVE); Urine Ketone 15 mg/dL (NEGATIVE); Urine Nitrite Negative (NEGATIVE); Urine Protein 15 mg/dL (NEGATIVE); Urine Specific Gravity 1.015 SP.GR. (1.005-1.010); Urine Urobilinogen Normal (NORMAL); Urine pH 8.5 pH (5.0-7.0)
[2017-06-14 00:10] LABS: Urine Appearance Clear; Urine Color Yellow
[2017-06-14] MEDS ORDERED: NORMAL SALINE 1,000 ML IV ONE (00:10)
[2017-06-14 00:11] LABS: Urine Bacteria 1+; Urine RBC 0-5 /hpf (0-5); Urine WBC 0-5 /hpf (0-5)
[2017-06-14] MEDS ORDERED: CEPHALEXIN MONOHYDRATE 250 MG CAPSULE PO ONE (00:44)
[2017-06-14] MEDS ORDERED: HYDROmorphone HCL 1 MG/ML DISP.SYRIN IV ONE (00:45)
[2017-06-14] MEDS ORDERED: diphenhydrAMINE HCL 50 MG/ML VIAL IV ONE (00:46)
[2017-06-14] MEDS ORDERED: diphenhydrAMINE HCL 50 MG/ML VIAL ONE (00:56)
[2017-06-14] MEDS ORDERED: CEPHALEXIN MONOHYDRATE 250 MG CAPSULE ONE (00:56)
[2017-06-14 01:09] VITALS: BP 111/40
== END 2017-06-14 01:07 | disposition home or self-care (01) ==
LOC: ER 22:20
DX: N23 Unspecified renal colic; Z87.440 Personal history of urinary (tract) infections; Z87.442 Personal history of urinary calculi

== ENCOUNTER 2017-06-19 08:23 | Emergency (ER) | payer BC ==
[2017-06-19 09:49] VITALS: BP 108/84
--- NOTE | 2017-06-19 09:49 | ERNOTE ---
Date of Service: 06/19/17 Time Seen by Provider: 06/19/17 08:40 Stated Complaint: URI Presenting Symptoms:: cough, sore throat Exam Limitations: no limitations Immunizations: IMMUNIZATION HX Immunizations Up to Date Yes History of Influenza Vaccine No Hx Pneumococcal Vaccination No Allergies/Adverse Reactions: Allergies infliximab [From Remicade] Adverse Reaction (Severe, Verified 06/19/17 08:37) Anaphylaxis metoclopramide HCl [From Reglan] Adverse Reaction (Intermediate, Verified 08:37) Muscle Pain morphine Adverse Reaction (Intermediate, Verified 06/19/17 08:37) Hives ustekinumab [From Stelara] Adverse Reaction (Intermediate, Verified 06/19/17 08: 37) Headache Home Medications: HOME MEDICATIONS HYDROcodone/ACETAMINOPHEN [Vicodin 5-300 mg Tablet] 1 tab PO Q6H PRN #20 tablet 10/12/15 [Last Taken 06/11/17 02:00] Ibuprofen [Motrin] 800 mg PO TID PRN 06/27/16 [Last Taken 06/27/16 17:00] Levonorgestrel [Mirena] 1 each IY DAILY 06/27/16 [Last Taken Unknown] HYDROcodone/ACETAMINOPHEN [[place] 5-325 Tablet] 1 tab PO Q4H PRN #10 tab [Last Taken Unknown] Norethindrone-E.estradiol-Iron [Becca Fe 1.5-30 Tablet] 1 each PO DAILY [Last Taken Unknown] Cephalexin Monohydrate [Keflex] 500 mg PO Q8H #21 capsule 06/14/17 [Last Taken Unknown] Ondansetron HCl [Zofran] 1 - 2 mg PO Q8H PRN #30 tab 06/14/17 [Last Taken Unknown] Tamsulosin HCl [Flomax] 0.4 mg PO DAILY@1800 #15 cap 06/14/17 [Last Taken Unknown] Amoxicillin 875 mg PO BID #20 tablet 06/19/17 [Last Taken Unknown] - History of Present Ilness Narrative: onset of cough and sore throat 1-2 days ago Timing: constant, getting worse Frequency/Possible Cause: Reports: no prior episodes Modifying Factors - Improves: Reports: rest Modifying Factors - Worsens: Reports: activity, coughing Associated Symptoms: Reports: sore throat, muscle aches, fever/chills Review of Systems - Narrative Narrative: unremarkable - Review of Systems Constitutional: Present: See HPI, weakness, fatigue, malaise EYE: Present: no symptoms reported ENT: Present: sore throat Respiratory: Present: cough Cardiology: Present: no symptoms reported Gastrointestinal/Abdominal: Present: no symptoms reported Genitourinary: Present: no symptoms reported Musculoskeletal: Present: no symptoms reported Skin: Present: no symptoms reported Neurological: Present: no symptoms reported Endocrine: Present: no symptoms reported Hematologic/Lymphatic: Present: no symptoms reported Psych: Present: no symptoms reported All Other Systems: All systems neg except as marked - Narrative Narrative: unremarkable - Patient's Past Medical History Patient History - Medical: Anemia, Chronic Pain, Fibromyalgia, Kidney stone, UTI 'S, Other Patient History - Cardiac/Respiratory: Asthma Patient History - Cancer: No Hx of Cancer Patient History - Surgical Procedures: Appendectomy, Cholecystectomy, T & A Patient History - Other: None LMP (females 10-50): mirena - Family History Family History:: no untoward family reactions to anesthesia, no familial bleeding tendencies, no family history of clotting disorders, no family history of premature - Family History Mother Family History - Medical: Diabetes Type 2 Family History - Cardiac/Respiratory: No pertinent hx Family History - Cancer: No pertinent family hx Father Family History - Medical: No pertinent hx Family History - Cardiac/Respiratory: No pertinent hx, COPD Family History - Cancer: No pertinent family hx - Social History Living Situations: home Abuse History: No History of abuse Psych History: No pertinent hx Smoking Status: Never smoker Alcohol Use: none Drug Use: none - Immunizations Immunizations Up to Date: Yes Hx Pneumococcal Vaccination: No History of Influenza Vaccine: No Physical Exam - Physical Exam General Appearance: Present: mild distress Head Exam: Present: normal inspection, no evidence of injury Eye Exam: Normal inspection: bilateral, PERRL: bilateral, EOMI: bilateral Ears, Nose, Throat: Present: nasal congestion, sinus pain/drainage, pharyngeal erythema, pharyngeal swelling Neck: Present: normal inspection, nontender Respiratory: Present: no respiratory distress, normal breath sounds, no accessory muscle use, chest nontender, lungs clear Cardiovascular/Chest: Present: regular rate, rhythm, no murmur, normal peripheral pulses Peripheral Pulses: N=norm/S=strong/W=weak/B=bound/A=absent: Carotid (R): Normal , Carotid (L): Normal, Radial (R): Normal, Radial (L): Normal, Femoral (R): Normal, Femoral (L): Normal, Dorsalis-pedis (R): Normal, Dorsalis-pedis (L): Normal Gastrointestinal/Abdominal: Present: normal bowel sounds, nontender, nondistended, soft, no organomegaly Back Exam: Present: normal inspection, normal range of motion, no CVA tenderness , no vertebral tenderness Extremity Exam: Present: normal inspection, non-tender, normal range of motion, no edema Neurological Exam: Present: alert, oriented, normal mood/affect, no motor/ sensory deficits Skin Exam: Present: normal color, warm/dry Lymphatic Exam: Present: no adenopathy ED Progress - Date and Time Seen: Date and Time: 06/19/17 09:46 unchanged - Results and Orders Patient's Lab Results:: I have reviewed the patient's lab results. - Vital Signs Patient's Vital Signs:: I have reviewed the patient's vital signs. Vital Signs: Vital Signs 06/19/17 08:33 Temperature 36.3 C L Pulse Rate 108 H Respiratory 16 Rate Blood Pressure 105/81 O2 Sat by Pulse 97 Oximetry - Progress/Reassessment Chief Complaint: Upper Respiratory Symptoms Progress:: Unchanged - Transfer of Care Expected Disposition: Discharge Plan - Plan Plan: to be discharged Departure Clinical Impression: Pharyngitis - Departure Disposition: Home self-care Condition: Fair Instructions: Pharyngitis, [id number] Referrals: Melquiades Sims DO [Primary Care Provider] - Prescriptions: Amoxicillin 875 mg PO BID #20 tablet
== END 2017-06-19 10:03 | disposition home or self-care (01) ==
LOC: ER 08:23
DX: Z87.442 Personal history of urinary calculi; J02.9 Acute pharyngitis, unspecified; D64.9 Anemia, unspecified; Z87.440 Personal history of urinary (tract) infections

== ENCOUNTER 2017-08-30 20:02 | Observation (INO) ==
[2017-08-30] MEDS ORDERED: HYDROmorphone HCL 2 MG/ML VIAL ONE (20:24)
[2017-08-30] MEDS ORDERED: ONDANSETRON HCL/PF 2 MG/ML VIAL ONE (20:24)
[2017-08-30] MEDS ORDERED: HYDROmorphone HCL 1 MG/ML DISP.SYRIN IV ONE (20:24)
[2017-08-30] MEDS ORDERED: ONDANSETRON HCL/PF 2 MG/ML VIAL IV ONE (20:24)
--- NOTE | 2017-08-30 20:30 | ERNOTE ---
Abdominal HPI - Narrative Date of Service: 08/30/17 - General Chief Complaint: Abdominal Pain Time Seen by Provider: 08/30/17 20:04 Source: patient - Immun/Allergies/Home Medications Immunizatons: IMMUNIZATION HX Immunizations Up to Date Yes History of Influenza Vaccine No Hx Pneumococcal Vaccination No Allergies/Adverse Reactions: Allergies infliximab [From Remicade] Adverse Reaction (Severe, Verified 08/30/17 15:37) Anaphylaxis metoclopramide HCl [From Reglan] Adverse Reaction (Intermediate, Verified 15:37) Muscle Pain morphine Adverse Reaction (Intermediate, Verified 08/30/17 15:37) Hives ustekinumab [From Stelara] Adverse Reaction (Intermediate, Verified 08/30/17 15: 37) Headache Home Medications: HOME MEDICATIONS Ibuprofen [Motrin] 800 mg PO TID PRN 06/27/16 [Last Taken 06/27/16 17:00] Levonorgestrel [Mirena] 1 each IY DAILY 06/27/16 [Last Taken Unknown] HYDROcodone/ACETAMINOPHEN [[place] 5-325 Tablet] 1 tab PO Q4H PRN #10 tab [Last Taken Unknown] Norethindrone-E.estradiol-Iron [Becca Fe 1.5-30 Tablet] 1 each PO DAILY [Last Taken Unknown] Tamsulosin HCl [Flomax] 0.4 mg PO DAILY #15 cap.sr.24h 08/30/17 [Last Taken Unknown] - History of Present Illness Narrative: 26-year-old female presents to the emergency room for pain control post kidney stone. Patient was here earlier this afternoon when she was diagnosed with for kidney stones. Patient attempted to go home and control pain with by mouth pain medications. Patient returns unable to control her pain at home at this time. Date (Duration): 08/30/17 Timing: constant Quality: severe Modifying Factors - (Improves): Present: analgesics Prior Abdominal Problems: Present: similar symptoms Prior Treatment: Present: recently seen, treated by physician Review of Systems - Review of Systems Constitutional: Present: no symptoms reported EYE: Present: no symptoms reported ENT: Present: no symptoms reported Respiratory: Present: no symptoms reported Cardiology: Present: no symptoms reported Gastrointestinal/Abdominal: Present: no symptoms reported Genitourinary: Present: See HPI Musculoskeletal: Present: See HPI Skin: Present: no symptoms reported Neurological: Present: no symptoms reported Endocrine: Present: no symptoms reported Hematologic/Lymphatic: Present: no symptoms reported Psych: Present: no symptoms reported All Other Systems: All systems neg except as marked - Patient's Past Medical History Patient History - Medical: Anemia, Chronic Pain, Fibromyalgia, Kidney stone, UTI 'S, Other Patient History - Cardiac/Respiratory: Asthma Patient History - Cancer: No Hx of Cancer Patient History - Surgical Procedures: Appendectomy, Cholecystectomy, T & A Patient History - Other: None LMP (females 10-50): other - Family History Mother Family History - Medical: Diabetes Type 2 Family History - Cardiac/Respiratory: No pertinent hx Family History - Cancer: No pertinent family hx Father Family History - Medical: No pertinent hx Family History - Cardiac/Respiratory: No pertinent hx, COPD Family History - Cancer: No pertinent family hx - Social History Living Situations: home Abuse History: No History of abuse Psych History: No pertinent hx Smoking Status: Never smoker Alcohol Use: none Drug Use: none - Immunizations Immunizations Up to Date: Yes Hx Pneumococcal Vaccination: No History of Influenza Vaccine: No Physical Exam - Physical Exam Narrative: Patient appears to be in pain, rocking back and forth. right cva tenderness General Appearance: Present: wd/wn, alert, moderate distress Head Exam: Present: normal inspection, no evidence of injury Eye Exam: Normal inspection: bilateral Ears, Nose, Throat: Present: normal ENT inspection Neck: Present: normal inspection, nontender Respiratory: Present: no respiratory distress, normal breath sounds, lungs clear Cardiovascular/Chest: Present: regular rate, rhythm, no murmur Gastrointestinal/Abdominal: Present: normal bowel sounds, soft, no organomegaly Back Exam: Present: CVA tenderness (R) Extremity Exam: Present: normal inspection, normal range of motion Neurological Exam: Present: alert, oriented, normal mood/affect, no motor/ sensory deficits Skin Exam: Present: normal color, warm/dry Lymphatic Exam: Present: no adenopathy ED Progress - Vital Signs Patient's Vital Signs:: I have reviewed the patient's vital signs. Vital Signs: Vital Signs 08/30/17 20:09 Temperature 36.9 C Pulse Rate 115 H Respiratory 18 Rate Blood Pressure 150/90 O2 Sat by Pulse 99 Oximetry - Progress/Reassessment Chief Complaint: Abdominal Pain Progress:: Improved Plan - Plan Plan: Is to be admitted for pain control this time. Departure Clinical Impression: Kidney stones - Departure Disposition: Still a patient Condition: Fair Referrals: Melquiades Sims DO [Primary Care Provider] -
[2017-08-30] MEDS: NORMAL SALINE 1,000 ML IV PRN (20:32)
[2017-08-30] MEDS ORDERED: ONDANSETRON HCL/PF 2 MG/ML VIAL IV PRN (20:42)
[2017-08-30] MEDS ORDERED: MAGNESIUM HYDROXIDE 30 ML UDC PO ONE (20:53)
[2017-08-30] MEDS ORDERED: HYDROmorphone HCL 1 MG/ML DISP.SYRIN IV PRN (20:54)
--- NOTE | 2017-08-30 21:03 | HP ---
Chief Complaint - Chief Complaint Date of Service: 08/30/17 Time of Service: 20:49 Chief Complaint: Abdominal pain History of Present Illness: 26 years old female adm to the hospital with report of uncontrolled abdominal pain with associated nausea and vomiting at home. pt stated she began having abdominal pain approximately 9am today. At 3pm she was seen initially in ER because pain felt like pervious kidney stones. CT ABD/ pelvic : No obstructive 4 small 2-4mm renal calculus in right kidney.No obstructive uropathy. Questionable subtle inflammatory changes around neck of pancreas. She had WNL lipase, she was given oral and iv pain medications and discharge home. However while at home the pain was unbearable and she wasn't able to tolerate oral meds , so she return to the ER. Pt stated she had kidney stones in the past and s/p lithotripsy x2 in [facility]. She was seen by urologist in [place] before but no recent visit. Pt stated she is a chronic pain suffer and is been treated by Dr. Bonner at the pain clinic for abuse of prescription medication. Plan of care discussed with pt she verbalized understanding ad agrees. - Patient's Past Medical History Patient History - Medical: Anemia, Chronic Pain, Fibromyalgia, Kidney stone, UTI 'S, Other - psoriasis, post depression, ankylosis spondylosis Patient History - Cardiac/Respiratory: Asthma Patient History - Cancer: No Hx of Cancer Patient History - Surgical Procedures: Appendectomy, Cholecystectomy, T & A Patient History - Other: None LMP (females 10-50): other - Family History Mother Family History - Medical: Diabetes Type 2 Family History - Cardiac/Respiratory: No pertinent hx Family History - Cancer: No pertinent family hx Father Family History - Medical: No pertinent hx Family History - Cardiac/Respiratory: No pertinent hx, COPD Family History - Cancer: No pertinent family hx - Social History Living Situations: home Abuse History: No History of abuse Psych History: No pertinent hx Smoking Status: Never smoker Alcohol Use: none Drug Use: none - Immunizations Immunizations Up to Date: Yes Hx Pneumococcal Vaccination: No History of Influenza Vaccine: No Review Of Systems (GEN) - Review of Systems Generalized/Overall Review: Present: No Symptoms Reported EENTM: Present: No Symptoms Reported Respiratory: Present: No Symptoms Reported Cardiac: Present: No Symptoms Reported Abdominal: Present: No Symptoms Reported Genitourinary: Present: No Symptoms Reported Musculoskeletal: Present: No Symptoms Reported Neurological: Present: No Symptoms Reported Skin: Present: No Symptoms Reported Endocrine: Present: No Symptoms Reported Allergies/Adverse Reactions: Allergies Allergy/AdvReac Type Severity Reaction Status Date / Time infliximab [From Remicade] AdvReac Severe Anaphylaxis Verified 08/30/17 15:37 metoclopramide HCl AdvReac Intermediate Muscle Pain Verified 08/30/17 20:47 [From Reglan] morphine AdvReac Intermediate Hives Verified 08/30/17 15:37 ustekinumab [From Stelara] AdvReac Intermediate Headache Verified 08/30/17 15:37 Home Medications: HOME MEDICATIONS Ibuprofen [Motrin] 800 mg PO TID PRN 06/27/16 [Last Taken 06/27/16 17:00] Levonorgestrel [Mirena] 1 each IY DAILY 06/27/16 [Last Taken Unknown] HYDROcodone/ACETAMINOPHEN [[place] 5-325 Tablet] 1 tab PO Q4H PRN #10 tab [Last Taken Unknown] Norethindrone-E.estradiol-Iron [Becca Fe 1.5-30 Tablet] 1 each PO DAILY [Last Taken Unknown] Tamsulosin HCl [Flomax] 0.4 mg PO DAILY #15 cap.sr.24h 08/30/17 [Last Taken Unknown] Exam - Exam Vital Signs: Vital Signs - Last Taken Temp 36.9 C 08/30/17 20:09 Pulse 115 H 08/30/17 20:09 Resp 18 08/30/17 20:09 BP 150/90 08/30/17 20:09 Pulse Ox 99 08/30/17 20:09 Constitutional: Present: Alert, Oriented x3, Cooperative, Well developed, No distress ENT Exam: Present: normal ENT inspection, hearing grossly normal Eye Exam: bilateral eye: normal inspection Neck: Present: non-tender, full range of motion Back Exam: Present: normal inspection, no CVA tenderness, no vertebral tenderness Breasts: Present: Exam deferred Respiratory: Present: chest non-tender, lungs clear, normal breath sounds, no respiratory distress, no accessory muscle use Cardiovascular/Chest: Present: normal peripheral pulses, regular rate, rhythm, no chest tenderness, no edema, no gallop Peripheral Pulses: dorsalis-pedis (R): 3+, dorsalis-pedis (L): 3+ Abdomen: Present: Normal bowel sounds, soft, nontender, nondistended, no rebound tenderness /Rectal: Present: Exam deferred Extremity: Present: normal range of motion, non-tender, normal inspection, no calf tenderness Skin Exam: Present: normal color, warm/dry Neurologic: Present: normal mood/affect, oriented x 3 Appearance: Present: appropriate appearance, appropriate insight Eye contact: Present: cooperative, good eye contact Thoughts: Present: normal thought pattern, no apparent hallucination Diagnostic Studies: CT ABD/ Pelvic: No obstructive 4 small 2-4mm kidney stones in right kidney.No obstructive uropathy. Questionable subtle inflammatory changes around neck of pancreas. Laboratory Tests 08/03/16 08/30/17 08/30/17 15:00 15:46 Unknown WBC 10.3 RBC 4.88 Hgb 14.0 Hct 43.3 MCV 88.7 MCH 28.7 MCHC 32.3 RDW 13.2 Plt Count 299 MPV 9.5 Immature Gran % (Auto) 0.30 Immature Gran # (Auto) 0.03 ESR 8 Sodium 139 Plasma Sodium 139 Potassium 4.2 D Chloride 102 Carbon Dioxide 23.1 L Anion Gap 18.1 H BUN 11 Creatinine 0.73 Est GFR (Non-Af Amer) 101 D AST 19 ALT 23 Alkaline Phosphatase 63 Amylase 32 Lipase 109 Assessment/Plan - Narrative Narrative: Renal calculus right kidney pt stated she have history of recurrent stone and had been seen by urologist In [place]. CT ABD/ Pelvic: No obstructive 4 small 2-4mm kidney stones in right kidney.No obstructive uropathy. Questionable subtle inflammatory changes around neck of pancreas Lipase was WNL Continue with IVF and oral hydration Strain all urine Zofran for nausea and Dilaudid for break through pain Continue with home dose of [place] and Flomax. Nausea and vomiting Pt report vomiting while at home, haven't vomited since second ER visit. Zofran 4mg PRN Misc: stop Dilaudid soon as prudent Plan for discharge home tomorrow and follow up with PCP and urologist. - Assessment/Plan (1) Renal calculus, right Problem: Acute (2) Chronic low back pain Problem: Chronic (3) Nausea & vomiting Problem: Acute
[2017-08-30] MEDS ORDERED: SENNOSIDES/DOCUSATE SODIUM 1 TAB TABLET PO ONE (22:00)
[2017-08-31] MEDS ORDERED: HYDROmorphone HCL 2 MG/ML VIAL IV PRN (00:04)
[2017-08-31] MEDS: NORMAL SALINE 1,000 ML IV PRN ×2 (01:21→06:27)
[2017-08-31] MEDS: HYDROcodone/ACETAMINOPHEN 1 EACH TABLET PO PRN ×2 (01:21→06:30)
[2017-08-31] MEDS ORDERED: KETOROLAC TROMETHAMINE 15 MG/ML VIAL IV PRN ×2 (04:15)
--- NOTE | 2017-08-31 05:39 | DS ---
(1) Renal calculus, right Problem: Acute (2) Chronic low back pain Problem: Chronic (3) Nausea & vomiting Problem: Resolved Description of Stay: Date of admission 08/30/2017 Date of Discharge 08/31/2017 Discharge Summary Mrs. Caruso a 26 years old female adm for abdominal pain and nausea. In ER CT ABD: Non obstruction 2-4mm right kidney stones. Dilaudid for break through pain and Zofran for nausea. Pain seeking behaviour discussed with pt she is agreeable, pt stated she have chronic pain and sees Dr. Bonner for pain management in [place] and Dr Soria for kidney stones. F/U with PCP in 7 days upon discharge. Diagnostic: CT ABD/ Pelvic: No obstructive 4 small 2-4mm kidney stones in right kidney.No obstructive uropathy. Questionable subtle inflammatory changes around neck of pancreas. Discharge New medication Zofran 8mg Q6h PRN Procedures Performed: none Discharge Location: Home Disposition: Home self-care Condition: Fair Discharge Activity: Activity as tolerated Discharge Diet: General/regular food Referrals: Melquiades Sims DO [Primary Care Provider] - Problem Oriented Discharge Instructions to Patient/Family: Kidney Stones, Easy- to-Read Prescriptions (Any new or edited meds): Ondansetron HCl [Zofran] 8 mg PO Q6H #20 tablet Complete Home Medications List: Complete Home Medication List: Ibuprofen [Motrin] 800 mg PO TID PRN 06/27/16 Levonorgestrel [Mirena] 1 each IY DAILY 06/27/16 HYDROcodone/ACETAMINOPHEN [[place] 5-325 Tablet] 1 tab PO Q4H PRN #10 tab Norethindrone-E.estradiol-Iron [[place]cca Fe 1.5-30 Tablet] 1 each PO DAILY Tamsulosin HCl [Flomax] 0.4 mg PO DAILY #15 cap.sr.24h 08/30/17 Ondansetron HCl [Zofran] 8 mg PO Q6H #20 tablet 08/31/17
[2017-08-31] MEDS ORDERED: IBUPROFEN 800 MG TABLET PO PRN (08:22)
[2017-08-31 09:00] VITALS: BP 128/72
[2017-08-31] MEDS ORDERED: LEVONORGESTREL IY SCH (09:00)
[2017-08-31] MEDS ORDERED: TAMSULOSIN HCL 0.4 MG CAP.SR.24H PO SCH (09:00)
[2017-08-31] MEDS ORDERED: IRON PO SCH (09:00)
[2017-08-31] MEDS ORDERED: [UNRECOGNIZED DRUG - OTHER] PO SCH (09:00)
[2017-08-31] MEDS ORDERED: ETHINYL ESTRADIOL PO SCH (09:00)
[2017-08-31] MEDS ORDERED: NORETHINDRONE PO SCH (09:00)
== END 2017-08-31 08:55 | disposition home or self-care (01) ==
LOC: ER 20:02 → MS 20:32
PROVIDERS: ADMIT Nurse Practitioner; ATTEND Family Medicine
DX: L40.9 Psoriasis, unspecified; M54.5 Low back pain; Z68.37 Body mass index [BMI] 37.0-37.9, adult; M45.9 Ankylosing spondylitis of unspecified sites in spine; N20.0 Calculus of kidney; Z87.442 Personal history of urinary calculi; R11.2 Nausea with vomiting, unspecified
CPT/HCPCS: 36415; 74176; 80053; 81001; 82150; 83519; 83690; 83880; 84703; 85025; 87086; 96361; 96374; 96375; 96376; 99284; G0378; J2405